=== PATIENT | male | born 1950 | race Caucasian/White ===

== ENCOUNTER 2016-08-18 21:04 | Emergency (ER) | payer OTHER ==
[~2016-08-18] VITALS: Ht 172.7 cm; Wt 115.8 kg
[~2016-08-18 21:04] MED LIST: ACYC5OIN3 EXT; AMLO-110 PO; AMOX500C3 PO; ASPEC325 PO; ATEN-173 PO; DICL75TA2 PO; FLNIN NAE; MULT-506 PO; PANT40TA PO; VALA1TAB PO
[2016-08-18 21:16] VITALS: TEMP 36.8; Ht 172.7 cm; Wt 115.8 kg
[2016-08-18] MEDS ORDERED: PROPARACAINE HCL 0.5% OP SOLN 15 ML BTL ONE (21:34)
[2016-08-18] MEDS ORDERED: ACYC5CRE4 TOP (21:55)
[2016-08-18] MEDS ORDERED: VALA1TAB2 PO (21:55)
[2016-08-18] MEDS ORDERED: ASPI81TA28 PO (21:55)
[2016-08-18] MEDS ORDERED: FLUT0.15 NAE (21:55)
[2016-08-18] MEDS ORDERED: CIPROFLOXACIN HCL 0.3% OP SOLN 2.5 ML BTL OP ONE ×2 (22:00)
[2016-08-18 22:10] VITALS: BP 163/87; PULSE 77; O2SAT 96
--- NOTE | 2016-08-19 02:04 | EMERGENCY ROOM VISIT NOTE ---
ED Visit Note First contact with patient: 21:26 Chief Complaint: Pinkeye. History of Present Illness: Mr. Haddad is a 66-year-old white male who ambulates into the ED accompanied by his complaining of conjunctivitis. Patient reports she was seen by his PCP on Sunday, 2 days ago, and was diagnosed with right eye conjunctivitis. He was prescribed antibiotic drops and seasonal allergy drops for his symptoms. He reports since using them for the last 2 days he has not had any relief of his symptoms and now he is starting to see redness and some mild drainage from the left eye. He reports he is expressing concerns because in 2 days he is leaving for a 10 day cruise of the [place] and once to feel better for this trip. Associated with eye redness and eye drainage patient reports he has a mild burning sensation to both eyes. He rates this discomfort 2/10. His pain is nonradiating. He has not identified any aggravating or alleviating factors related to the pain. He has not taken any medications for pain prior to arrival at the hospital except for his eyedrops. Associated with his pain is the drainage from the eyes but he has noted some mild light sensitivity. He denies fevers, chills, sweats, skin eruptions, skin color changes, visual changes, recent eye trauma, upper respiratory tract symptoms. Review of Systems: As noted above in history of present illness. 5 body systems were reviewed and found to be negative as noted above. Past Medical History: Hypertension, seasonal allergies, status post LASIK surgery Current Medications: Medications Dose Route/Sig Max Daily Dose Days Date Category Dose Instructions Aspirin Ec (Aspirin) 81 Mg Tab 81 Mg PO HS 08/18/16 Reported Flonase Allergy Relief (Fluticasone Propionate (Nasal)) 50 Mcg/Act Spr 1 Sprays TEVIN PRN 08/18/16 Reported Zovirax (Acyclovir Topical) 5 % Cre 1 Appln TOP 5XD PRN 5 08/18/16 Reported Valtrex (Valacyclovir Hcl) 1 Gm Tab 2,000 Mg PO BID 08/18/16 Reported Amoxil (Amoxicillin) 500 Mg Cap 2,000 Mg PO PRN 05/29/12 Reported 1 HOUR BEFORE DENTAL WORK-KNEE REPLACEMENTS Norvasc (Amlodipine Besylate) 5 Mg Tab 5 Mg PO QAM 05/29/12 Reported Voltaren (Diclofenac Sodium) 75 Mg Tab 50 Mg PO BID 12/21/11 Reported Protonix (Pantoprazole Sodium) 40 Mg Tab 40 Mg PO QAM 12/21/11 Reported Multivitamin (Multivitamins) Tab 1 Tab PO QAM 05/09/10 Reported Tenormin (Atenolol) 25 Mg Tab 25 Mg PO QPM 05/09/10 Reported Allergies to Medications: Sulfa. Social History: Patient is not employed; he feels safe in his home environment; he admits to tobacco and alcohol use. Physical Examination: Vital Signs: Date Time Temp Pulse Resp B/P Pulse Ox O2 Delivery O2 Flow Rate FiO2 08/18/16 22:10 77 18 163/87 96 08/18/16 21:16 36.8 74 20 166/79 95 Room Air GENERAL: 66-year-old male in mild distress due to symptoms, nontoxic-appearing, afebrile and hemodynamically stable. NEUROLOGICAL: Awake, alert and oriented to person, place and time. Answering questions appropriately and following commands. SKIN: Warm, dry and pink. HEENT: Atraumatic and normocephalic. No erythema or tenderness over the frontal or maxillary sinuses. No swelling or erythema around the orbits of the eye. PERRLA. EOMI. Sclera injected bilaterally. Conjunctivae is hyperemic with mild drainage of yellowish material. No foreign bodies noted under the eyelids are embedded in the cornea. Anterior chamber is clear. On slit lamp examination with staining there was no foreign body seen and no corneal uptake of the dye. Visual acuity: 20/50 bilaterally without correction. No local lymphadenopathy. No drainage from naris. ED Course: Patient is assessed as noted above. After lengthy conversation he was agreed that we would switch antibiotic coverage but he still should use his allergy medications. So patient was prescribed Ciloxan ophthalmic solution. Patient was educated about tonight's findings and instructed on his treatment plan; he verbalizes understanding and agreement with this plan. Clinical Impression: Bilateral conjunctivitis. Disposition: Patient discharged home in stable condition accompanied by his ; prior to departure he was reassessed and subjectively reported he was feeling the same. Plan: Patient was prescribed Ciloxan ophthalmic solution 2 drops in both eyes every 4 hours while awake for 5 days. Lengthy education was provided on the decreasing the risks of cross and re- contamination. 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 Patient was encouraged to return to an ED or follow-up with a center medical and lab director for worsening symptoms, fevers, visual changes or any new/concerning symptoms.
== END 2016-08-18 22:10 | disposition home or self-care (01) ==
LOC: C.EDB 21:05 → C.EDD 22:10
DX: H10.9 Unspecified conjunctivitis (principal); I10 Essential (primary) hypertension; Z72.0 Tobacco use; Z98.890 Other specified postprocedural states; Z79.82 Long term (current) use of aspirin; Z79.899 Other long term (current) drug therapy

== ENCOUNTER 2017-07-30 11:58 | Inpatient (IN) | payer OTHER ==
[2017-07-19 08:59] VITALS: BMI 42.0
--- NOTE | 2017-07-19 09:49 | PAT Medication Instructions ---
Service Date Jul 19, 2017. Current Home Medication List Acyclovir Topical (Zovirax), 1 APPLN TOP UD PRN for COLD SORES Amlodipine (Norvasc), 5 MG PO QAM Amoxicillin (Amoxil), 2,000 MG PO UD Aspirin (Aspirin Ec), 81 MG PO HS Atenolol (Tenormin), 25 MG PO QPM Ciprofloxacin Tab (Cipro), 500 MG PO BID Diclofenac Sodium (Voltaren), 50 MG PO BID Fluticasone Propionate (Nasal) (Flonase Allergy Relief), 1 SPRAYS TEVIN QAM PRN for allergies Multivitamin (Multivitamin), 1 TAB PO QAM Qwlclclu-Gcdnjmxuu-Wj (Otic) (Marco/Polymyxin/Hc [id number]), 4 DROPS INSTIL UD Pantoprazole Sodium (Protonix), 40 MG PO QAM Simvastatin (Zocor), 20 MG PO HS Valacyclovir Hcl (Valtrex), 2,000 MG PO UD PRN for cold sores Medication Instructions For Your Scheduled Surgery -Continue as directed: Amoxicillin (Amoxil), 2,000 MG PO UD Ciprofloxacin Tab (Cipro), 500 MG PO BID Ziejhkml-Pnznnirud-Ph (Otic) (Marco/Polymyxin/Hc [id number]), 4 DROPS INSTIL UD - Hold the following medications 7 days prior to surgery per your surgeon's instructions: Diclofenac Sodium (Voltaren), 50 MG PO BID - Hold the following medications 24 hours prior to surgery: Acyclovir Topical (Zovirax), 1 APPLN TOP UD PRN for COLD SORES Valacyclovir Hcl (Valtrex), 2,000 MG PO UD PRN for cold sores - Hold the following medications the morning of surgery: Multivitamin (Multivitamin), 1 TAB PO QAM - Take the following medications the morning of surgery with a sip of water: Amlodipine (Norvasc), 5 MG PO QAM Pantoprazole Sodium (Protonix), 40 MG PO QAM Fluticasone Propionate (Nasal) (Flonase Allergy Relief), 1 SPRAYS TEVIN QAM PRN for allergies (if needed) - Take the following medications as scheduled the night before surgery: Aspirin (Aspirin Ec), 81 MG PO HS Atenolol (Tenormin), 25 MG PO QPM Simvastatin (Zocor), 20 MG PO HS Fluticasone Propionate (Nasal) (Flonase Allergy Relief), 1 SPRAYS TEVIN QAM PRN for allergies (if needed) If you have any questions please call us at [phone] or [phone] or [phone]
[2017-07-19 10:20] LABS: BASO % 0.5 %; BASO ABS # 0.03 K/uL (0-0.2); EOS % 3.1 %; HEMATOCRIT 40.5 % (42-52); HEMOGLOBIN 13.8 g/dL (14.0-18.0); IG# 0.01 K/uL (0.00-0.02); LYMPH % 34.7 %; LYMPH ABS # 2.25 K/uL (1.2-3.4); MEAN CELL VOLUME 91.4 fL (80-100); MEAN CORPUSCULAR HEMOGLOBIN 31.2 pg (25-34); MEAN CORPUSCULAR HGB CONC 34.1 g/dl (32-36); MEAN PLATELET VOLUME 10.3 fL (7.4-10.4); MONO % 10.9 %; MONO ABS # 0.71 K/uL (0.11-0.59); NEUT % 50.6 %; NEUT ABS # 3.29 K/uL (1.4-6.5); PLATELET COUNT 188 K/uL (130-400); RED CELL DISTRIBUTION WIDTH CV 13.2 % (11.5-14.5); RED CELL DISTRIBUTION WIDTH SD 43.8 fL (36.4-46.3); WHITE BLOOD COUNT 6.49 K/uL (4.8-10.8)
[2017-07-19 11:43] LABS: PTT PATIENT 25.4 SECONDS (21.0-31.0)
--- NOTE | 2017-07-29 16:02 | HISTORY & PHYSICAL EXAMINATION ---
DATE OF ADMISSION: 07/30/2017 PREOPERATIVE HISTORY AND PHYSICAL REASON FOR ADMISSION: Being preoped for a posterior lumbar interbody fusion, L4-L5 lumbar spine. SURGEON: Dr. Temo Vilchis. CHIEF COMPLAINT: Back pain, lower extremity difficulties, paresthesias, numbness and tingling, signs of spinal instability with increasing pain with ambulation and standing, lessened by becoming supine. HISTORY OF PRESENT ILLNESS: Sim is delightful. He is 67. He has a significant instability and stenosis of the spine at L4-L5. PAST MEDICAL HISTORY: Hypertension, high cholesterol, obesity, sleep apnea, osteoarthritis, acid reflux, prostate carcinoma, anesthesia complications, awareness after surgery. ALLERGIES: SULFA. MEDICATIONS: Include diclofenac, Flonase, Valtrex, atenolol, and Centrum. PAST SURGICAL HISTORY: Bilateral shoulder facetectomy, Lasik eye surgery, bilateral knee surgery, brachytherapy for prostate carcinoma and lumbar spine surgery. REVIEW OF SYSTEMS: Denies any blurred vision, double vision, tinnitus or vertigo. He denies any current neck issues. Denies chest pain, palpitations. Denies asthma, wheezing, shortness of breath. No nausea, vomiting, urgency, frequency, dysuria. Major complaint is back musculoskeletal lower extremities, paresthesias. PHYSICAL EXAMINATION: GENERAL: He is 5 feet 7 inches, 260. VITAL SIGNS: Blood pressure 140/80, pulse 80, respiration rate 16, temperature 97.4. HEENT: Pupils react to light and accommodation. Ear, nose and throat clear. CARDIAC: Normal S1, S2, no S3. LUNGS: Clear to auscultation. No rales, rhonchi, wheezing. ABDOMEN: Soft, nontender, bowel sounds present. EXTREMITIES: Intact x4. He has pain with flexion and extension of the spine. Weakness of dorsiflexion, weakness of quadriceps function. Pain with percussion. IMPRESSION: Severe spinal stenosis, lumbar spine; instability, lumbar spine at L4-L5. DISPOSITION: Includes a PLIF procedure, posterior lumbar interbody fusion, L4-L5 of lumbar spine.
[~2017-07-30] VITALS: Ht 170.2 cm; Wt 122.3 kg
[2017-07-30] VITALS (8 sets, daily range): BP systolic 136–151; BP diastolic 67–90; PULSE 72–102; TEMP 36.3–36.9; O2SAT 94–99; Ht 170.2 cm; Wt 122.3 kg
[~2017-07-30 11:58] MED LIST changes: +ACETAMINOPHEN IV 1000MG/100ML IV SCH; +ACYC5CRE4 TOP; -ACYC5OIN3 EXT; -ASPEC325 PO; +ASPI81TA28 PO; +CEFAZOLIN 3000MG IV PUSH 22.5 ML IV SCH; +CIPR1TAB11 PO; +CeleBREX 200 MG CAP PO SCH; +FENTANYL CITRATE INJ 50 MCG/1 ML 2 ML VIAL ONE; -FLNIN NAE; +FLUT0.15 NAE; +GABAPENTIN 300 MG CAP PO SCH; +LACTATED RINGER'S 1000ML 1,000 ML IV SCH; +MIDAZOLAM HCL 1 MG/ML 2ML VIAL ONE; +NSS 1000ML IV SCH; +SIMV20TA2 PO; -VALA1TAB PO; +VALA1TAB2 PO; +[UNRECOGNIZED DRUG - CODE] INSTIL
[2017-07-30] MEDS ORDERED: ACET1TAB84 PO (12:24)
[2017-07-30] MEDS ORDERED: VANCOMYCIN HCL 1000MG/20ML VIAL ONE (13:53)
[2017-07-30] MEDS ORDERED: GELATIN SPONGE SZ 100 ONE (13:53)
[2017-07-30] MEDS ORDERED: BACITRACIN 50000 UNIT VIAL ONE (13:53)
[2017-07-30] MEDS ORDERED: THROMBIN FOR SOLN 20000 UNIT KIT ONE (13:53)
[2017-07-30] MEDS ORDERED: BUPIVACAINE/EPINEPHRINE 0.5% MPF 1:200,000 30 ML VIAL ONE (13:54)
--- NOTE | 2017-07-30 14:02 | History & Physical Bridge Note ---
H&P Re-Evaluation Bridge Note: I have examined the patient, reviewed the History & Physical and in the interval since the performance of the History & Physical I have noted the following changes of clinical significance: No changes noted
[2017-07-30] MEDS ORDERED: FENTANYL CITRATE INJ 50 MCG/1 ML 2 ML VIAL ONE ×2 (14:33→15:54)
[2017-07-30] MEDS ORDERED: GLYCOPYRROLATE INJ 0.2 MG/ML VIAL ONE (14:47)
[2017-07-30] MEDS ORDERED: EpHEDrine SULFATE 50MG/5ML SYR ONE (14:47)
[2017-07-30] MEDS ORDERED: NEOSTIGMINE METHYLSULFATE 1 MG/ML 10ML VIAL ONE (14:47)
[2017-07-30] MEDS ORDERED: ROCURONIUM BROMIDE 10 MG/ML 5 ML VIAL IV ONE (14:47)
[2017-07-30] MEDS ORDERED: ONDANSETRON INJ 2 MG/ML 2 ML VIAL ONE (14:47)
[2017-07-30] MEDS ORDERED: LIDOCAINE HCL 2% 2 ML VIAL (20MG/ML) ONE (14:47)
[2017-07-30] MEDS ORDERED: PROPOFOL IV EMULSION 10 MG/ML 20 ML VIAL IV ONE (14:47)
[2017-07-30] MEDS ORDERED: DEXAMETHASONE SOD INJ 4 MG/ML VIAL ONE (14:47)
--- NOTE | 2017-07-30 16:29 | DIAGNOSTIC IMAGING REPORT ---
INTRAOPERATIVE RADIOGRAPH CLINICAL HISTORY: L4-L5 spinal fusion. Fluoroscopy time: 10 seconds. FINDINGS: A single spot fluoroscopic view of the lumbar spine is presented. There is been discectomy at L4-L5 with laminectomy and posterior fusion at this level. Interpedicular screws are present at both levels. Orthopedic hardware appears intact. IMPRESSION: Intraoperative image from L4 -L5 spinal fusion as above. Electronically signed by: Cristi Messer M.D. 07/30/2017 4:28 PM Dictated Date/Time: 07/30/2017 4:27 PM
[2017-07-30] MEDS ORDERED: HYDROmorphone INJ 2 MG/ML SYR/VIAL ONE (16:30)
[2017-07-30] MEDS ORDERED: VANCOMYCIN HCL 1000MG/20ML VIAL TOP ONE (16:34)
[2017-07-30] MEDS ORDERED: THROMBIN FOR SOLN 20000 UNIT KIT TOP ONE (16:38)
[2017-07-30] MEDS ORDERED: SODIUM CHLORIDE 0.9% 1000ML 1,000 ML IV SCH ×2 (16:47)
--- NOTE | 2017-07-30 16:48 | [facility] Post Operative Brief Note ---
Immediate Operative Summary Operative Date Jul 30, 2017. Pre-Operative Diagnosis Severe spinal stenosis, lumbar spine; instability, lumbar spine at L4-L5 Post-Operative Diagnosis Severe spinal stenosis, lumbar spine; instability, lumbar spine at L4-L5 Procedure(s) Performed L4-L5 Posterior Lumbar Interbody Fusion Surgeon Dr. Vilchis Crester Surgeon(s) Ed Llanes PA-C Estimated Blood Loss 300cc Findings Consistent with Post-Op Diagnosis Specimens None Anesthesia Type General
[2017-07-30] MEDS ORDERED: HYDROmorphone HCL 0.5MG/ML 50 ML CASSETTE ONE (16:57)
[2017-07-30] MEDS ORDERED: ONDANSETRON INJ 2 MG/ML 2 ML VIAL IV PRN (17:00)
[2017-07-30] MEDS ORDERED: MAGNESIUM HYDROXIDE SUSP 30 ML UDC PO PRN (17:00)
[2017-07-30] MEDS ORDERED: LORAZEPAM 1 MG TAB PO PRN (17:00)
[2017-07-30] MEDS ORDERED: PROMETHAZINE HCL INJ 12.5 MG in SODIUM CHLORIDE 0.9% 50ML 50 ML IV PRN (17:00)
[2017-07-30] MEDS ORDERED: ACETAMINOPHEN 325 MG TAB PO PRN (17:00)
[2017-07-30] MEDS ORDERED: LORAZEPAM INJ 1 MG in SYRINGE 0 ML IV PRN (17:00)
[2017-07-30] MEDS ORDERED: METOCLOPRAMIDE HCL INJ 5 MG/ML 2 ML VIAL IV PRN (17:00)
[2017-07-30] MEDS ORDERED: NALOXONE HCL 0.4 MG/1 ML VIAL/CARP IV PRN (17:00)
[2017-07-30 17:15] LABS: HEMATOCRIT 40.5 % (42-52); HEMOGLOBIN 14.2 g/dL (14.0-18.0)
[2017-07-30] MEDS ORDERED: NURSING VERBAL MED ORDER ONE (17:30)
--- NOTE | 2017-07-30 17:33 | Anesthesiology Progress Note ---
Anesthesia Post Op Note Date & Time Jul 30, 2017 at 17:33 Vital Signs Pain Intensity: 2 Vital Signs Past 12 Hours Date Time Temp Pulse Resp B/P (MAP) Pulse Ox O2 Delivery O2 Flow Rate FiO2 07/30/17 17:25 36.7 88 16 150/70 99 Nasal Cannula 4 07/30/17 17:15 82 16 151/66 99 Nasal Cannula 4 07/30/17 17:05 86 17 134/66 99 Oxymask 8 07/30/17 16:55 71 16 134/69 99 Oxymask 8 07/30/17 16:46 36.2 79 16 145/60 99 Oxymask 8 07/30/17 12:28 36.6 72 20 144/76 99 Room Air Notes Mental Status: alert / awake / arousable, participated in evaluation Pt Amnestic to Procedure: Yes Nausea / Vomiting: adequately controlled Pain: adequately controlled Airway Patency, RR, SpO2: stable & adequate BP & HR: stable & adequate Hydration State: stable & adequate Anesthetic Complications: no major complications apparent
[2017-07-30] MEDS: HYDROmorphone HCL 0.5MG/ML 50 ML CASSETTE IV PRN ×2 (17:47→22:50)
--- NOTE | 2017-07-30 19:19 | OPERATIVE REPORT ---
DATE OF OPERATION: 07/30/2017 PREOPERATIVE DIAGNOSIS: Spondylolisthesis, stenosis L4-L5 lumbar. POSTOPERATIVE DIAGNOSIS: Same. PROCEDURES: 1. Posterior lumbar decompression laminectomy L4 and L5, partial facetectomy. 2. Complete discectomy L4-L5. 3. Post pedicle screw instrumentation L4-L5 and posterior lumbar interbody fusion bilateral L4-L5. SURGEON: Temo Vilchis DO LONG TERM: Macario Llanes PA-C COMPLICATIONS: Zero. BLOOD LOSS: 300 mL. IMPLANTS USED: By the Modality. DESCRIPTION OF PROCEDURE: The patient was taken to the operating room and general intubated anesthetic provided to patient, placed prone, prepped and draped sterile. We made a skin incision, fascial incision. We came down the L4-L5 interspace, putting a deep self-retaining retractor. We decompressed the neural elements at L4 and L5, getting freedom off the L5 nerve root and L4 nerve root bilaterally. I was pleased with the decompression. We then safely instrumented the spine and safely got pedicle screws on the left hand side and left hand side at L4 and L5, stabilizing the spondylolisthesis. We retracted the dura left and right. We were able to do a posterior lumbar interbody fusion. We did a complete discectomy of all visible and conceivable disc material. The cages were used, packed with autograft preceded by autograft as well into the intervertebral area. These were also by the Modality. They measured 11 mm from anterior-posterior. We locked down the construct under compression. We irrigated, closed over Hemovac drain and vancomycin powder. We bone grafted out of the transverse processes. We closed with 1-0 Vicryl, 2-0 and 3-0 nylon in the skin. Sterile dressings applied. The patient returned to PACU stable. There were no apparent complications. I attest to the content of the Intraoperative Record and any orders documented therein. Any exception s are noted below.
[2017-07-30] MEDS: CEFAZOLIN IV 2,000 MG in SYRINGE 0 ML IV SCH (20:28)
[2017-07-30] MEDS: DEXAMETHASONE INJ 10 MG in SYRINGE 0 ML IV SCH (22:25)
[2017-07-31] VITALS (8 sets, daily range): BP systolic 115–148; BP diastolic 59–81; PULSE 80–149; TEMP 36.5–37.2; O2SAT 89–96
[2017-07-31] MEDS: CEFAZOLIN IV 2,000 MG in SYRINGE 0 ML IV SCH ×2 (03:06→11:37)
[2017-07-31] MEDS: DEXAMETHASONE INJ 10 MG in SYRINGE 0 ML IV SCH ×3 (05:56→21:08)
[2017-07-31] MEDS ORDERED: BISACODYL 10 MG SUPP PR PRN (06:00)
[2017-07-31] MEDS ORDERED: HYDROmorphone INJ 2 MG/ML SYR/VIAL IV PRN (06:00)
[2017-07-31] MEDS ORDERED: TRAMADOL HCL 50 MG TAB PO PRN (06:00)
[2017-07-31] MEDS ORDERED: HYDROmorphone INJ 1 MG/ML SYR IV PRN (06:00)
[2017-07-31] MEDS ORDERED: OXYCODONE/ACETAMINOPHEN 5-325 TAB PO PRN (06:00)
[2017-07-31] MEDS ORDERED: DC PCA ONE (06:00)
[2017-07-31] MEDS ORDERED: NURSING VERBAL MED ORDER ONE (06:15)
[2017-07-31 06:38] LABS: HEMATOCRIT 36.8 % (42-52); HEMOGLOBIN 12.7 g/dL (14.0-18.0); MEAN CORPUSCULAR HEMOGLOBIN 31.1 pg (25-34); MEAN CORPUSCULAR HGB CONC 34.5 g/dl (32-36); MEAN PLATELET VOLUME 10.4 fL (7.4-10.4); PLATELET COUNT 195 K/uL (130-400); RED CELL DISTRIBUTION WIDTH CV 13.2 % (11.5-14.5); RED CELL DISTRIBUTION WIDTH SD 42.8 fL (36.4-46.3); WHITE BLOOD COUNT 12.51 K/uL (4.8-10.8)
[2017-07-31 07:15] LABS: CALCIUM 8.3 mg/dl (8.5-10.1); POTASSIUM 4.2 mmol/L (3.5-5.1)
[2017-07-31 07:18] LABS: CREATININE 1.2 mg/dl (0.60-1.40)
--- NOTE | 2017-07-31 07:51 | Anesthesiology Progress Note ---
Anesthesia Post Op Note Date & Time Jul 31, 2017 at 07:50 Vital Signs Pain Intensity: 2.0 Vital Signs Past 12 Hours Date Time Temp Pulse Resp B/P (MAP) Pulse Ox O2 Delivery O2 Flow Rate FiO2 07/31/17 07:04 90 2.0 07/31/17 07:03 149 120/76 (91) 89 Room Air 07/31/17 06:51 36.9 136 20 127/81 (96) 95 Room Air 07/31/17 03:05 37.0 102 16 130/68 (88) 92 Room Air 07/30/17 23:28 Room Air 07/30/17 23:22 36.9 100 16 136/67 (90) 94 Room Air 07/30/17 21:03 36.6 102 18 145/74 (97) 95 Room Air 07/30/17 20:00 36.3 90 18 151/73 (99) 97 Nasal Cannula 4.0 Notes Mental Status: alert / awake / arousable, participated in evaluation Pt Amnestic to Procedure: Yes Nausea / Vomiting: adequately controlled Pain: adequately controlled Airway Patency, RR, SpO2: stable & adequate BP & HR: stable & adequate, see Notes Hydration State: stable & adequate Anesthetic Complications: no major complications apparent patient went into Afib 90-[address] this morning. RN notified Dr. Vega who ordered an EKG and atenolol. VSS.
--- NOTE | 2017-07-31 08:25 | Medical Consult ---
Consultation Date of Consultation: Jul 31, 2017. Attending Physician: Temo Vilchis DO History of Present Illness 67 year old M seen by hospitalist medicine after reports or atrial fibrillation with RVR on 07/31/17. Patient is an orthopedics patients with severe spinal stenosis at L4-L5 and s/p L4-L5 Posterior Lumbar Interbody Fusion by Dr. Vilchis on 07/30/17. EKG performed at 7:10 AM on 07/31/17 documenting afib with RVR at 139 beats per minute. Patient subsequently received morning dose of atenolol 25 mg as per nurse which is part of patient's home medication (Other pertinent home medications for blood pressure and cardiovascular is amlodipine and simvastatin) . Patient denies receiving atenolol yesterday. Patient is asymptomatic when When seen at bedside, patient denies chest pain, shortness of breath, lightheadedness, or palpitations. However, on physical exam, patient with irregular heart beats and tachycardic. Past Medical/Surgical History Medical Problems: (1) Acute conjunctivitis, bilateral Status: Acute Family History FH: COPD (chronic obstructive pulmonary disease) FATHER FH: cancer MOTHER Social History Smoking Status: Former Smoker Allergies Coded Allergies: Celecoxib (Verified Allergy, Intermediate, HIVES, 07/30/17) Lisinopril (Verified Allergy, Unknown, HEADACHE, DIZZINESS, 07/30/17) Sulfa Drugs (Verified Allergy, Unknown, HIVES, 07/30/17) Current Inpatient Medications Current Inpatient Medications Medications (Trade) Dose Ordered Sig/Alessandro Route Start Time Stop Time Status Last Admin Dose Admin Diphenhydramine HCl (Benadryl Cap) 25 mg Q6H PRN PO 07/30/17 17:00 08/29/17 16:59 Magnesium Hydroxide (Milk Of Magnesia Susp) 30 ml DAILY PRN PO 07/30/17 17:00 08/29/17 16:59 Bisacodyl (Dulcolax Supp) 10 mg DAILY PRN SC 07/31/17 06:00 08/30/17 05:59 Bisacodyl (Dulcolax Tab) 5 mg DAILY PRN PO 07/31/17 06:00 08/30/17 05:59 Polyethylene (Miralax Powder Packet) 17 gm DAILY PO 07/31/17 09:00 08/30/17 08:59 Lorazepam 1 mg/ Syringe 0.5 ml @ 1 mls/min Q6H PRN IV 07/30/17 17:00 08/29/17 16:59 Lorazepam (Ativan Tab) 1 mg Q6H PRN PO 07/30/17 17:00 08/29/17 16:59 Metoclopramide HCl (Reglan Inj) 10 mg Q6H PRN IV 07/30/17 17:00 08/29/17 16:59 Ondansetron HCl (Zofran Inj) 4 mg Q6H PRN IV 07/30/17 17:00 08/29/17 16:59 07/31/17 05:51 4 MG Promethazine HCl 12.5 mg/Sodium Chloride 50.5 ml @ 202 mls/hr Q6H PRN IV 07/30/17 17:00 08/29/17 16:59 Hydromorphone HCl (Dilaudid Inj) 1.5 mg Q3H PRN IV 07/31/17 06:00 08/14/17 05:59 Oxycodone/ Acetaminophen (Percocet 5-325mg Tab) 2 tab Q4H PRN PO 07/31/17 06:00 08/14/17 05:59 Hydromorphone HCl (Dilaudid Inj) 1 mg Q3H PRN IV 07/31/17 06:00 08/14/17 05:59 Oxycodone/ Acetaminophen (Percocet 5-325mg Tab) 1 tab Q4H PRN PO 07/31/17 06:00 08/14/17 05:59 Tramadol HCl (Ultram Tab) 50 mg Q4H PRN PO 07/31/17 06:00 08/30/17 05:59 Acetaminophen (Tylenol Tab) 650 mg Q6H PRN PO 07/30/17 17:00 08/29/17 16:59 Cefazolin Sodium 2000 mg/Syringe 15 ml @ 3.75 mls/ min Q8H IV 07/30/17 20:00 07/31/17 12:03 07/31/17 03:06 3.75 MLS/MIN Dexamethasone Sodium Phosphate 10 mg/Syringe 2.5 ml @ 1 mls/min Q8H IV 07/30/17 22:00 08/01/17 06:03 3/6/18 05:56 1 MLS/MIN Atenolol (Tenormin Tab) 25 mg QPM PO 07/31/17 21:00 08/30/17 20:59 Review of Systems Constitutional: No fever Eyes: No worsening of vision, No eye pain ENT: No hearing loss, No nasal symptoms, No sore throat Respiratory: No cough, No sputum, No wheezing, No shortness of breath, No dyspnea at rest Cardiovascular: No chest pain, No edema, No palpitations Abdomen: No pain, No nausea, No vomiting Musculoskeletal: No joint pain Genitourinary - Male: No dysuria Neurologic: No numbness/tingling, No vertigo Integumentary: No rash Physical Exam Date Time Temp Pulse Resp B/P (MAP) Pulse Ox O2 Delivery O2 Flow Rate FiO2 07/31/17 08:18 135 135/77 (96) 91 Nasal Cannula 2.0 07/31/17 08:15 Nasal Cannula 2.0 07/31/17 07:04 90 2.0 07/31/17 07:03 149 120/76 (91) 89 Room Air 07/31/17 06:51 36.9 136 20 127/81 (96) 95 Room Air 07/31/17 03:05 37.0 102 16 130/68 (88) 92 Room Air 07/30/17 23:28 Room Air 07/30/17 23:22 36.9 100 16 136/67 (90) 94 Room Air 07/30/17 21:03 36.6 102 18 145/74 (97) 95 Room Air 07/30/17 20:00 36.3 90 18 151/73 (99) 97 Nasal Cannula 4.0 07/30/17 19:02 36.3 86 18 143/90 (107) 97 Nasal Cannula 4.0 07/30/17 18:12 83 16 144/78 (100) 96 Nasal Cannula 4.0 07/30/17 18:00 99 Nasal Cannula 4.0 07/30/17 18:00 99 Nasal Cannula 4.0 07/30/17 17:45 36.6 84 16 147/70 (95) 96 Nasal Cannula 4.0 07/30/17 17:25 36.7 88 16 150/70 99 Nasal Cannula 4 07/30/17 17:15 82 16 151/66 99 Nasal Cannula 4 3/5/18 17:05 86 17 134/66 99 Oxymask 8 07/30/17 16:55 71 16 134/69 99 Oxymask 8 07/30/17 16:46 36.2 79 16 145/60 99 Oxymask 8 07/30/17 12:28 36.6 72 20 144/76 99 Room Air General Appearance: no apparent distress Eyes: normal inspection, EOMI, sclerae normal ENT: normal ENT inspection, pharynx normal Neck: supple, no adenopathy, no carotid bruits, trachea midline Respiratory/Chest: chest non-tender, lungs clear, normal breath sounds, no respiratory distress, no accessory muscle use Cardiovascular: no edema, no JVD, + tachycardia, + irregularly irregular Abdomen/GI: normal bowel sounds, non tender, soft Back: no muscle spasm, + pertinent finding (patient able to lean forward on exam) Extremities/Musculoskelatal: normal inspection, no calf tenderness, no pedal edema, non-tender 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, alert, normal mood/affect, oriented x 3 Skin: normal color, warm/dry, no rash Laboratory Results Last 24 Hours Test 07/30/17 17:01 07/31/17 05:44 Hemoglobin 14.2 g/dL 12.7 g/dL Hematocrit 40.5 % 36.8 % White Blood Count 12.51 K/uL Red Blood Count 4.09 M/uL Mean Corpuscular Volume 90.0 fL Mean Corpuscular Hemoglobin 31.1 pg Mean Corpuscular Hemoglobin Concent 34.5 g/dl RDW Standard Deviation 42.8 fL RDW Coefficient of Variation 13.2 % Platelet Count 195 K/uL Mean Platelet Volume 10.4 fL Sodium Level 133 mmol/L Potassium Level 4.2 mmol/L Chloride Level 102 mmol/L Carbon Dioxide Level 21 mmol/L Anion Gap 10.0 mmol/L Blood Urea Nitrogen 23 mg/dl Creatinine 1.20 mg/dl Est Creatinine Clear Calc Drug Dose 76.0 ml/min Estimated GFR () 72.6 Estimated GFR (Non- 62.6 BUN/Creatinine Ratio 18.8 Random Glucose 174 mg/dl Calcium Level 8.3 mg/dl Magnesium Level 2.0 mg/dl Thyroid Stimulating Hormone (TSH) 0.466 uIu/ml Assessment & Plan -67 year old M s/p L4-L5 Posterior Lumbar Interbody Fusion by on 07/30/17 and having atrial fibrillation with RVR on 07/31/17 -EKG performed at 7:10 AM on 07/31/17 documenting afib with RVR at 139 beats per minute -has received atenolol 25 mg in AM -atrial fibrillation appears new onset as comparison EKG in August 2016 in normal sinus rhythm -have ordered patient to be transferred to telemetry for further monitoring as patient likely needs further rate control medications -review of patient's exercise echocardiogram in 09/2016 shows no evidence for ischemia -will send troponin and ordered echocardiogram on this admission -have requested cardiology consultation on rate control vs rhythm control strategy or whether this atrial fibrillation is a transient event -of note, patient's post-op labs pertinent for elevated WBC, while leukocytosis may be from dexamethasone use or reactive from surgical procedure and patient received antibiotics with the surgical procedure and patient is afebrile, blood cultures ordered in case afib with RVR triggered by bacterial infection -patient not in pain, continue pain medications as per orthopedics -DVT ppx with SCDs - however will defer to cardiology whether other anticoagulation needed for atrial fibrillation -allergies sulfur and celebrex - gets hives, also reports feeling unwell with lisinopril but no edema reactions
[2017-07-31] MEDS: POLYETHYLENE (MIRALAX) 17 GM PACK PO SCH (08:38)
[2017-07-31] MEDS ORDERED: METOPROLOL TARTRATE 25 MG TAB PO STA (09:21)
[2017-07-31] MEDS ORDERED: METOPROLOL TARTRATE 1 MG/ML VIAL IV STA (09:21)
[2017-07-31] MEDS ORDERED: METOPROLOL TARTRATE 1 MG/ML VIAL ONE (09:34)
[2017-07-31] MEDS ORDERED: HYDR-4383 PO (12:43)
--- NOTE | 2017-07-31 12:45 | Discharge Instructions ---
Discharge Instructions Date of Service Jul 31, 2017. Admission Reason for Admission: Spinal Stenosis Discharge Discharge Diagnosis / Problem: same Discharge Goals Goal(s): Improve function Activity Recommendations Activity Limitations: as noted below Lifting Limitations: no more than 5 pounds just be careful . Instructions / Follow-Up Instructions / Follow-Up MEDICATIONS: Please take your prescriptions as instructed at your pre-op appointment. SPECIAL CARE: The following information is intended to answer some of the common questions and concerns regarding your surgery. Each patient is an individual and receives individual counselling throughout the course of treatment, from diagnosis to surgery all the way through recovery. What follows is not an exhaustive list, but should be a useful guide to some of the common questions and concerns patients have regarding their surgeries. These are not provided to keep you from calling us; rather, they give you something accurate and concrete to reference as you recover from your procedure. If you need us, we are available to you. As always, if you are not sure about something, call us at [phone]. MEDICAL EMERGENCIES: For these conditions, call 911 or go to your local hospital-based Emergency Department - not [facility] or equivalent. * Paralysis * Severe chest pain or difficulty breathing * Swelling or redness of either leg Spine procedures can be rather complex and though complications are rare, they do occur. In such cases, effective advice regarding emergency situations cannot always be addressed over the telephone. You may be referred to the emergency department for more effective management of your problem. Activity Limitations: It is important to give your body time to heal, so please limit your activities : * In general, don't do anything that moves your spine too much. You should avoid contact sports, twisting or heavy lifting while you recover. * 5-10 pounds is all you should attempt to lift. * You should not plan on driving for approximately 3 weeks and you should avoid traveling more than 30-45 minutes at a time. Longer trips should be broken down with walking breaks spaced appropriately. * Physical therapy is not usually required. * Walking and good posture practices will help you recover and regain your function. * Avoid straining or sudden changes in position. * In general, the goal is to take it easy and recover. Don't cause any new problems. Just relax. Showers: * Do not take a bath, use a Jacuzzi or hot tub or otherwise submerge your incision. * It is usually safe to take a shower 4-5 days after your surgery. * Your incision does not require any special creams or ointments. * Simply clean it with soap and water, dry and re-dress with a clean bandage afterwards. Incision: * Keep incision clean, dry and protected until your first follow-up appointment. * Some amount of drainage and redness is normal. Any drainage should be fairly clear and not have a foul odor. * If you feel anything is wrong or you have excessive drainage, please call us. * Your stitches and felisha will be removed 10-14 days after your surgery. At the time of your first post-op visit. * Neck surgeries are typically closed with a suture underneath the skin. The steri-strips over the incision should be maintained until we see you in the office. Bracing: * You may be provided with a back or neck brace to encourage good posture and prevent injury. It will remind you not to do too much as you heal and will alert others to the fact that you have had a surgery. * Back braces may be removed for showers and when you are resting at home. They must be worn when you are walking around for any period of time or for travel. * For neck surgery, you will likely be provided with two cervical collars. The soft collar ([place] or foam rubber) is worn most commonly throughout the day and while sleeping. The plastic collar (provided at the hospital) is for showering/bathing. * Except while eating, collars should remain in place. More specifically, bracing is provided for a purpose and should be worn. * Please obtain your brace or collars prior to your operation and bring them to the hospital with you on the day of surgery. * You should also bring your collars to your post-op appointment with Dr. Vilchis. You should always take good care of your body and practice healthy habits, especially following surgery. You should: * Follow your doctor's treatment plan * Sit and stand properly with good posture (ears over shoulders, shoulders over hips) Don't slouch * Learn to lift correctly * Exercise regularly (low-impact aerobic exercise is especially good, but check with your doctor first) * Generally, be up and walking for 5-10 minutes at a time at least 3-4 times per day from the day you get home * Increasing walking to tolerance until you can walk for 20-30 minutes at a time * Attain and maintain a healthy body weight * Eat healthy foods ( a well-balanced, low-fat diet rich in fruits and vegetables) and get enough calcium * Avoid excessive use of alcohol When to call our office - If you notice any of the following: * Increased pain not relieve by pain medicine * Fevers greater then 100 degrees F, chills or flu symptoms * Increased redness around incision * Drainage from the incision that is not clear * Any foul smelling drainage * Swelling or fluid collection beneath the skin Miscellaneous: * In the hospital, you may be given a walker or cane for support while walking. These are temporary needs and are intended to prevent injuries due to falls. You may discontinue them when you feel strong and steady enough on your feet. * Sleep in a comfortable position. We find that many patients find a lounge chair or recliner with several pillows to be beneficial in the early post-operative period. * The support stockings should be used for 7-10 days and may be discontinued when you are back to walking more and conducting usual household activities. No problem is insignificant. We are here to help you and get you well. Contact us at [phone]. Definitions: Foraminotomy: If part of the disc or a bone spur (osteophyte) is pressing on a nerve as it leaves the vertebra (through an exit called the foramen), a foraminotomy may be done. Otomy means "to make an opening." A foraminotomy is making the opening of the foramen larger, so the nerve can exit without being compressed. Laminotomy: Similar to the foraminotomy, a laminotomy makes a larger opening, this time in your bony plate protecting your spinal canal and spinal cord (the lamina). The lamina may be pressing on your nerve, so the surgeon may make more room for the nerves using a laminotomy. Laminectomy: Sometimes, a laminotomy is not sufficient. The surgeon may need to remove all or part of the lamina. This procedure is called a laminectomy. This can often be done at many levels without any harmful effects. Current Hospital Diet Patient's current hospital diet: Regular Diet Discharge Diet Recommended Diet: Regular Diet Procedures Procedures Performed: L4-L5 Posterior Lumbar Interbody Fusion Pending Studies Studies pending at discharge: no Medical Emergencies . Who to Call and When: Medical Emergencies: If at any time you feel your situation is an emergency, please call 911 immediately. . Non-Emergent Contact Non-Emergency issues call your: Primary Care Provider . "Provider Documentation" section prepared by Temo Vilchis. . VTE Core Measure Inpt VTE Proph given/why not?: Treatment not tolerated
--- NOTE | 2017-07-31 14:44 | ORTHOPEDICS PROGRESS NOTE ---
DATE: 07/31/2017 SUBJECTIVE: Sim is alert, oriented. Denies chest pain, shortness of breath. OBJECTIVE: Vital signs stable. As I was leaving the floor, I was alerted by one of the skilled nurses ____ team indicating to me that his pulse rate had elevated to 140 and it was irregular. We immediately got a hold of the hospitalist with the [facility]. Will get him transferred to observation. He is now about 18 hours post-reconstructive spinal surgery and so far so good, we will get him down to the monitored floor, hopefully get him up on his feet and ambulatory. ____
[2017-07-31] MEDS: OXYCODONE/ACETAMINOPHEN 5-325 TAB PO PRN (14:50)
[2017-07-31] MEDS ORDERED: AMIODARONE IV BOLUS / DRIP IV STA (15:05)
[2017-07-31] MEDS ORDERED: AMIODARONE / D5W 100 ML IV ONE (15:15)
--- NOTE | 2017-07-31 15:18 | Cardiology Consultation ---
Cardiology Consultation Date of Service Jul 31, 2017. Cardiology Consultation Indication: Consultation for her atrial fibrillation with RVR History: This is a 67-year-old male patient who underwent a lumbar laminectomy yesterday. Early this morning he developed atrial fibrillation with RVR and was transferred to the telemetry unit. He was restarted on his atenolol and actually received additional IV beta basil but remains in atrial fibrillation with RVR. He is currently hemodynamically stable and denies symptoms. He has no prior history of heart disease. He denies cardiac arrhythmias, congestive heart failure or ischemic heart disease. Patient has not experienced heart palpitations, tachycardia, dizziness or lightheadedness prior to surgery. He is treated for hypertension and has a history of sleep apnea which is not treated. He has no history of diabetes, kidney disease or strokes. Allergies: Celecoxib, lisinopril, sulfa drugs Reported Home Medications Medications Dose Route/Sig Max Daily Dose Days Date Category Dose Instructions [place] 10/325 Tab (Acetaminophen/Hydrocodone Bitart) 1 Tab Tab 1-2 Tabs PO Q6H PRN 07/31/17 Rx As needed for pain Tylenol Arthritis Ext Rel (Acetaminophen) 650 Mg Cplt 1,300 Mg PO Q8H PRN 07/30/17 Reported Zocor (Simvastatin) 20 Mg Tab 20 Mg PO HS 07/19/17 Reported Aspirin Ec (Aspirin) 81 Mg Tab 81 Mg PO HS 08/18/16 Reported Flonase Allergy Relief (Fluticasone Propionate (Nasal)) 50 Mcg/Act Spr 1 Sprays TEVIN QAM PRN 08/18/16 Reported Zovirax (Acyclovir Topical) 5 % Cre 1 Appln TOP UD PRN 5 08/18/16 Reported Valtrex (Valacyclovir Hcl) 1 Gm Tab 2,000 Mg PO UD PRN 08/18/16 Reported Amoxil (Amoxicillin) 500 Mg Cap 2,000 Mg PO UD 05/29/12 Reported PER PT MED LIST - TAKES 1 HOUR BEFORE DENTAL WORK, MEDICAL PROCEDURE Norvasc (Amlodipine Besylate) 5 Mg Tab 5 Mg PO QAM 05/29/12 Reported Voltaren (Diclofenac Sodium) 75 Mg Tab 50 Mg PO BID 12/21/11 Reported Protonix (Pantoprazole Sodium) 40 Mg Tab 40 Mg PO QAM 12/21/11 Reported Multivitamin (Multivitamins) Tab 1 Tab PO QAM 05/09/10 Reported Tenormin (Atenolol) 25 Mg Tab 25 Mg PO QPM 05/09/10 Reported Past medical history: As outlined above the patient has a history of hypertension. He states that he has a history of sleep apnea but treatment was not indicated. He is treated for dyslipidemia. Social history: The patient is a nonsmoker. He lives with his . Family medical history: Noncontributory General: The patient denies weight change, night sweats, fever, chills. Head: The patient denies headache and prior head trauma. Cardiovascular: The patient denies chest pain or chest discomfort, dyspnea on exertion, palpitations, PND, orthopnea, edema, spontaneous shortness of breath, syncope and near syncope. Pulmonary: The patient denies cough, wheeze, pleurisy, hemoptysis, sputum, and excessive snoring. Gastrointestinal: The patient denies nausea, vomiting, diarrhea, constipation, bloating, hematemesis, hematochezia, and abdominal pain. Skin: The patient denies diaphoresis and rash. Musculoskeletal: The patient had a lumbar laminectomy yesterday Neurological: The patient denies prior stroke and seizures Vital Signs Past 12 Hours Date Time Temp Pulse Resp B/P (MAP) Pulse Ox O2 Delivery O2 Flow Rate FiO2 07/31/17 12:18 36.5 89 18 148/79 (102) 96 07/31/17 09:36 123 07/31/17 08:31 135 91 2.0 07/31/17 08:18 135 135/77 (96) 91 Nasal Cannula 2.0 07/31/17 08:15 Nasal Cannula 2.0 07/31/17 07:04 90 2.0 07/31/17 07:03 149 120/76 (91) 89 Room Air 07/31/17 06:51 36.9 136 20 127/81 (96) 95 Room Air General Appearance: Alert and Oriented x3. NAD. Head: Normocephalic Atraumatic. Eyes: PERRLA, EOMI, conjunctiva and sclera clear Neck: Supple. No carotid bruits noted. No JVD. No HJD. Respiratory: Breath sounds clear to auscultation bilaterally. No w/r/r. Cardiovascular: Reg rate and rhythm. S1 and S2 noted. No murmurs, rubs, gallops. PMI non displace. Abdomen: Normal bowel sounds, soft nontender. no abdominal bruits. Extremities: No edema, no clubbing or cyanosis. distal pulses 2/4 bilaterally. Neuro: No focal deficits. Psychiatric: Normal affect. Last 24 Hours Test 07/30/17 17:01 07/31/17 05:44 07/31/17 08:41 Hemoglobin 14.2 g/dL 12.7 g/dL Hematocrit 40.5 % 36.8 % White Blood Count 12.51 K/uL Red Blood Count 4.09 M/uL Mean Corpuscular Volume 90.0 fL Mean Corpuscular Hemoglobin 31.1 pg Mean Corpuscular Hemoglobin Concent 34.5 g/dl RDW Standard Deviation 42.8 fL RDW Coefficient of Variation 13.2 % Platelet Count 195 K/uL Mean Platelet Volume 10.4 fL Sodium Level 133 mmol/L Potassium Level 4.2 mmol/L Chloride Level 102 mmol/L Carbon Dioxide Level 21 mmol/L Anion Gap 10.0 mmol/L Blood Urea Nitrogen 23 mg/dl Creatinine 1.20 mg/dl Est Creatinine Clear Calc Drug Dose 76.0 ml/min Estimated GFR () 72.6 Estimated GFR (Non- 62.6 BUN/Creatinine Ratio 18.8 Random Glucose 174 mg/dl Calcium Level 8.3 mg/dl Magnesium Level 2.0 mg/dl Thyroid Stimulating Hormone (TSH) 0.466 uIu/ml Troponin I < 0.015 ng/ml Impression: 1. Atrial fibrillation with RVR 2. Status post lumbar laminectomy 3. History of hypertension 4. History of sleep apnea Recommendations: The patient is in persistent atrial fibrillation with RVR despite being given beta blockers. I think it's important that we try to get him back into normal sinus rhythm as early as possible and therefore going to start him on intravenous diuretic with the hope that he will spontaneously convert. He is currently not anticoagulated due to his surgery but I think it' s early enough on in the onset of atrial fibrillation can safely allow him to convert. If he remains in persistent atrial fibrillation then we will have to anticoagulate him. I would continue his other medications including the atenolol and his home amlodipine. I will review the echocardiogram that was completed this morning. Once the amiodarone has been started and is on a continuous drip, if he remains stable then he can eat. Thank you Dr. Gaffney
[2017-07-31] MEDS ORDERED: AMIODARONE / D5W 200 ML IV SCH ×2 (15:24→21:24)
--- NOTE | 2017-07-31 17:05 | ECHOCARDIOGRAM REPORT ---
*NOTICE TO RECEIVING CONSTITUTION PARTY AGENCY This information is strictly Confidential and protected under [place] law. [place] law prohibits you from making any further disclosure of this information unless further disclosure is expressly permitted by the written consent of the person to whom it pertains or is authorized by law. A general authorization for the release of medical or other information is not sufficient for this purpose. Hospital accepts no responsibility if the information is made available to any other person, INCLUDING THE PATIENT. Interpretation Summary * Name: ALICIA BLANK Study Date: 07/31/2017 01:21 PM BP: 148/79 mmHg * Patient Location: C.2T\S\S230\S\2 HR: 118 * : 1950 (M/d/yyyy) Gender: Male Height: 67 in * Age: 67 yrs Ethnicity: [place] Weight: 270 lb * Ordering Physician: Fili Mendes * Referring Physician: Temo Vilchis * Performed By: Giulia Hwang RCS * * Reason For Study: A-FIB WITH RVR * BSA: 2.3 m2 * -- Conclusions -- * The patient is in atrial fibrillation during the study. * Left ventricular systolic function is normal. * Ejection Fraction = 55-60%. * The right ventricular systolic function is normal. * The left atrial size is normal. * Right atrial size is normal. * No significant valvular pathology. Procedure Details * A complete two-dimensional transthoracic echocardiogram was performed (2D, M-mode, Doppler and color flow Doppler). Left Ventricle * The left ventricle is normal in size. * There is normal left ventricular wall thickness. * Left ventricular systolic function is normal. * Ejection Fraction = 55-60%. * The left ventricular wall motion is normal. Right Ventricle * The right ventricle is normal size. * The right ventricular systolic function is normal. Atria * The left atrial size is normal. * Right atrial size is normal. * No ASD detected; PFO is not assessed. Mitral Valve * The mitral valve is normal in structure and function. Tricuspid Valve * The tricuspid valve is normal in structure and function. Aortic Valve * The aortic valve is normal in structure and function. Pulmonic Valve * The pulmonic valve is not well visualized. Great Vessels * The aortic root and proximal ascending aorta are normal sized. Pericardium/Pleural * There is no pericardial effusion. MMode 2D Measurements and Calculations IVSd 1.4 cm IVSs 2.0 cm LVIDd 3.7 cm LVIDs 2.9 cm LVPWd 1.4 cm LVPWs 1.3 cm IVS/LVPW 1.0 FS 21.5 % EDV(Teich) 56.3 ml ESV(Teich) 31.3 ml EF(Teich) 44.5 % EDV(cubed) 48.7 ml ESV(cubed) 23.5 ml EF(cubed) 51.7 % % IVS thick 40.2 % % LVPW thick -10.53 % LV mass(C)d 187.7 grams LV mass(C)dI 81.7 grams/m\S\2 LV mass(C)s 173.4 grams LV mass(C)sI 75.5 grams/m\S\2 SV(Teich) 25.0 ml SI(Teich) 10.9 ml/m\S\2 SV(cubed) 25.2 ml SI(cubed) 11.0 ml/m\S\2 Ao root diam 3.4 cm Ao root area 9.1 cm\S\2 LA dimension 3.5 cm LA/Ao 1.0 LVOT diam 1.8 cm LVOT area 2.7 cm\S\2 LVAd ap4 32.3 cm\S\2 LVLd ap4 8.6 cm EDV(MOD-sp4) 100.3 ml EDV(sp4-el) 103.2 ml LVAs ap4 21.0 cm\S\2 LVLs ap4 7.1 cm ESV(MOD-sp4) 53.1 ml ESV(sp4-el) 53.0 ml EF(MOD-sp4) 47.1 % EF(sp4-el) 48.6 % LVAd ap2 32.4 cm\S\2 LVLd ap2 8.9 cm EDV(MOD-sp2) 96.3 ml EDV(sp2-el) 100.4 ml LVAs ap2 19.5 cm\S\2 LVLs ap2 6.5 cm ESV(MOD-sp2) 47.2 ml ESV(sp2-el) 49.4 ml EF(MOD-sp2) 51.0 % EF(sp2-el) 50.8 % LVLd %diff 3.6 % EDV(MOD-bp) 98.5 ml LVLs %diff -8.95 % ESV(MOD-bp) 50.3 ml EF(MOD-bp) 48.9 % SV(MOD-sp4) 47.2 ml SI(MOD-sp4) 20.5 ml/m\S\2 SV(MOD-sp2) 49.1 ml SI(MOD-sp2) 21.4 ml/m\S\2 SV(MOD-bp) 48.2 ml SI(MOD-bp) 21.0 ml/m\S\2 SV(sp4-el) 50.2 ml SI(sp4-el) 21.8 ml/m\S\2 SV(sp2-el) 51.0 ml SI(sp2-el) 22.2 ml/m\S\2 Doppler Measurements and Calculations MV E max aj 111.6 cm/sec MV P1/2t max aj 121.7 cm/sec MV P1/2t 63.7 msec MVA(P1/2t) 3.5 cm\S\2 MV dec slope 559.1 cm/sec\S\2 MV dec time 0.19 sec Ao V2 max 134.8 cm/sec Ao max PG 7.3 mmHg Ao max PG (full) 2.4 mmHg [place](V,A) 2.2 cm\S\2 [place](V,D) 2.2 cm\S\2 LV V1 max PG 4.9 mmHg LV V1 max 110.6 cm/sec MR max aj 480.1 cm/sec MR max PG 92.2 mmHg PA V2 max 79.4 cm/sec PA max PG 2.5 mmHg
[2017-08-01] VITALS (7 sets, daily range): BP systolic 108–145; BP diastolic 45–73; PULSE 55–79; TEMP 36.5–37.1; O2SAT 92–96
[2017-08-01] MEDS: DEXAMETHASONE INJ 10 MG in SYRINGE 0 ML IV SCH (05:37)
[2017-08-01 06:09] LABS: HEMATOCRIT 34.1 % (42-52); HEMOGLOBIN 11.7 g/dL (14.0-18.0); MEAN CORPUSCULAR HEMOGLOBIN 30.9 pg (25-34); MEAN CORPUSCULAR HGB CONC 34.3 g/dl (32-36); MEAN PLATELET VOLUME 9.9 fL (7.4-10.4); PLATELET COUNT 183 K/uL (130-400); RED CELL DISTRIBUTION WIDTH CV 13.3 % (11.5-14.5); RED CELL DISTRIBUTION WIDTH SD 43.8 fL (36.4-46.3); WHITE BLOOD COUNT 15.13 K/uL (4.8-10.8)
[2017-08-01 06:45] LABS: CALCIUM 8.4 mg/dl (8.5-10.1); CREATININE 1.2 mg/dl (0.60-1.40); POTASSIUM 4.3 mmol/L (3.5-5.1)
[2017-08-01] MEDS: POLYETHYLENE (MIRALAX) 17 GM PACK PO SCH (07:43)
[2017-08-01] MEDS: BISACODYL 5 MG TABEC PO PRN (07:45)
--- NOTE | 2017-08-01 07:55 | Progress Note ---
Internal Med Progress Note Date of Service: Aug 01, 2017. Provider Documentation: Hospitalist consult follow up note SUBJECTIVE: Denies pain or shortness of breath. On amiodarone drip OBJECTIVE: Exam: General- no distress, verbal Eyes- EOMI Neck-trachea midline, no JVD Lungs- CTABL, no wheezing Heart- Regular rate, sinus in rhythm Abdomen- soft nontender, + bowel sounds Back- wound vac and drain Extremities- no edema Neuro- no focal deficits, awake, alert ASSESSMENT & PLAN: Hospitalist consult follow up note 67 year old M s/p L4-L5 Posterior Lumbar Interbody Fusion by on 07/30/17 and having atrial fibrillation with RVR on 07/31/17. Patient subsequently received beta blockers of home dose atenolol and additional metoprolol and has been started on amiodarone drip by cardiology service. Patient had echocardiogram on 07/31/17 when he was still in atrial fibrillation but the echocardiogram showed that the Left ventricular systolic function is normal with Ejection Fraction = 55-60%. Since around 5 PM on 07/31/17 the patient has been in sinus rhythm. Heart rate also under 100 beats per minute since that time Currently on scheduled home dose atenolol in regards to beta blockers although likely the intent of this home medication was aimed for blood pressure control rather than rate control from primary care doctor While heart rate is controlled at this time and patient is in sinus rhythm, hospitalist medicine service will defer to cardiology service on whether patient will need anticoagulation. The recent surgery does complicate the question on bleeding risks Patient has wound vac/drain to be followed by primary orthopedics team. DVT prophylaxis and pain control medications and bowel regimen as per orthopedics team Vital Signs: Date Time Temp Pulse Resp B/P (MAP) Pulse Ox O2 Delivery O2 Flow Rate FiO2 08/01/17 04:00 Room Air 08/01/17 03:13 37.0 75 20 126/72 (90) 93 Room Air 08/01/17 00:00 Room Air 07/31/17 23:30 36.8 81 20 131/68 (89) 94 Room Air 07/31/17 20:00 Room Air 07/31/17 19:30 37.2 80 20 115/59 (77) 90 Room Air 07/31/17 16:00 Room Air 07/31/17 12:18 36.5 89 18 148/79 (102) 96 07/31/17 09:36 123 07/31/17 08:31 135 91 2.0 07/31/17 08:18 135 135/77 (96) 91 Nasal Cannula 2.0 07/31/17 08:15 Nasal Cannula 2.0 Lab Results: Results Past 24 Hours Test 07/31/17 08:41 08/01/17 05:24 Range/Units Troponin I < 0.015 0-0.045 ng/ml White Blood Count 15.13 4.8-10.8 K/uL Red Blood Count 3.79 4.7-6.1 M/uL Hemoglobin 11.7 14.0-18.0 g/dL Hematocrit 34.1 42-52 % Mean Corpuscular Volume 90.0 80-100 fL Mean Corpuscular Hemoglobin 30.9 25-34 pg Mean Corpuscular Hemoglobin Concent 34.3 32-36 g/dl RDW Standard Deviation 43.8 36.4-46.3 fL RDW Coefficient of Variation 13.3 11.5-14.5 % Platelet Count 183 130-400 K/uL Mean Platelet Volume 9.9 7.4-10.4 fL Sodium Level 137 136-145 mmol/L Potassium Level 4.3 3.5-5.1 mmol/L Chloride Level 106 98-107 mmol/L Carbon Dioxide Level 23 21-32 mmol/L Anion Gap 8.0 3-11 mmol/L Blood Urea Nitrogen 31 7-18 mg/dl Creatinine 1.20 0.60-1.40 mg/dl Est Creatinine Clear Calc Drug Dose 76.0 ml/min Estimated GFR () 72.6 Estimated GFR (Non- 62.6 BUN/Creatinine Ratio 25.6 10-20 Random Glucose 156 70-99 mg/dl Calcium Level 8.4 8.5-10.1 mg/dl Microbiology Results 07/31/17 Blood Culture, Received Pending 07/31/17 Blood Culture, Received Pending
--- NOTE | 2017-08-01 09:52 | Cardiology Follow-Up ---
Subjective Subjective Date of Service: Aug 01, 2017. Pt evaluation today including: conversation w/ patient, physical exam, chart review, lab review, review of studies, review of inpatient medication list Additional Details: The patient converted to normal sinus rhythm soon after starting the amiodarone drip late yesterday afternoon. Patient had uneventful night and has maintained sinus rhythm. He actually has been walking through the halls this morning with physical therapy and has no complaints. Problem List Medical Problems: (1) Acute conjunctivitis, bilateral Status: Acute Objective Vital Signs Last Vital Signs Documentation Date Time Temp Pulse Resp B/P (MAP) Pulse Ox O2 Delivery O2 Flow Rate FiO2 08/01/17 08:06 36.8 70 18 111/51 (71) 94 08/01/17 04:00 Room Air 07/31/17 08:31 2.0 Physical Exam: General Appearance: no apparent distress ENT: normal ENT inspection, hearing grossly normal Respiratory/Chest: lungs clear, no respiratory distress, no accessory muscle use Cardiovascular: regular rate, rhythm, no gallop, no murmur Abdomen: non tender, soft, no organomegaly Extremities: no pedal edema Neurologic/Psychiatric: no motor/sensory deficits, alert, normal mood/affect Skin: warm/dry Lymphatic: no adenopathy Assessment and Plan Impression: 1. Paroxysmal atrial fibrillation 2. Hypertension 3. Sleep apnea 4. Status post laminectomy Recommendations: I will stop the amiodarone this morning. He should remain on a telemetry unit until this afternoon and if he maintains sinus rhythm then he can be transferred to the orthopedic floor. I would continue his atenolol at its current dose. Medications: Current Inpatient Medications Medications (Trade) Dose Ordered Sig/Alessandro Route Start Time Stop Time Status Last Admin Dose Admin Diphenhydramine HCl (Benadryl Cap) 25 mg Q6H PRN PO 07/30/17 17:00 08/29/17 16:59 Magnesium Hydroxide (Milk Of Magnesia Susp) 30 ml DAILY PRN PO 07/30/17 17:00 08/29/17 16:59 Bisacodyl (Dulcolax Supp) 10 mg DAILY PRN PA 07/31/17 06:00 08/30/17 05:59 Bisacodyl (Dulcolax Tab) 5 mg DAILY PRN PO 07/31/17 06:00 08/30/17 05:59 08/01/17 07:45 5 MG Polyethylene (Miralax Powder Packet) 17 gm DAILY PO 07/31/17 09:00 08/30/17 08:59 08/01/17 07:43 17 GM Lorazepam 1 mg/ Syringe 0.5 ml @ 1 mls/min Q6H PRN IV 07/30/17 17:00 08/29/17 16:59 Lorazepam (Ativan Tab) 1 mg Q6H PRN PO 07/30/17 17:00 08/29/17 16:59 Metoclopramide HCl (Reglan Inj) 10 mg Q6H PRN IV 07/30/17 17:00 08/29/17 16:59 Ondansetron HCl (Zofran Inj) 4 mg Q6H PRN IV 07/30/17 17:00 08/29/17 16:59 07/31/17 05:51 4 MG Promethazine HCl 12.5 mg/Sodium Chloride 50.5 ml @ 202 mls/hr Q6H PRN IV 07/30/17 17:00 08/29/17 16:59 Hydromorphone HCl (Dilaudid Inj) 1.5 mg Q3H PRN IV 07/31/17 06:00 08/14/17 05:59 Oxycodone/ Acetaminophen (Percocet 5-325mg Tab) 2 tab Q4H PRN PO 07/31/17 06:00 08/14/17 05:59 07/31/17 14:50 2 TAB Hydromorphone HCl (Dilaudid Inj) 1 mg Q3H PRN IV 07/31/17 06:00 08/14/17 05:59 Oxycodone/ Acetaminophen (Percocet 5-325mg Tab) 1 tab Q4H PRN PO 07/31/17 06:00 08/14/17 05:59 07/31/17 23:28 1 TAB Tramadol HCl (Ultram Tab) 50 mg Q4H PRN PO 07/31/17 06:00 08/30/17 05:59 Acetaminophen (Tylenol Tab) 650 mg Q6H PRN PO 07/30/17 17:00 08/29/17 16:59 Atenolol (Tenormin Tab) 25 mg QPM PO 07/31/17 21:00 08/30/17 20:59 07/31/17 21:07 25 MG Lab Results: Last 24 Hours Test 08/01/17 05:24 White Blood Count 15.13 K/uL Red Blood Count 3.79 M/uL Hemoglobin 11.7 g/dL Hematocrit 34.1 % Mean Corpuscular Volume 90.0 fL Mean Corpuscular Hemoglobin 30.9 pg Mean Corpuscular Hemoglobin Concent 34.3 g/dl RDW Standard Deviation 43.8 fL RDW Coefficient of Variation 13.3 % Platelet Count 183 K/uL Mean Platelet Volume 9.9 fL Sodium Level 137 mmol/L Potassium Level 4.3 mmol/L Chloride Level 106 mmol/L Carbon Dioxide Level 23 mmol/L Anion Gap 8.0 mmol/L Blood Urea Nitrogen 31 mg/dl Creatinine 1.20 mg/dl Est Creatinine Clear Calc Drug Dose 76.0 ml/min Estimated GFR () 72.6 Estimated GFR (Non- 62.6 BUN/Creatinine Ratio 25.6 Random Glucose 156 mg/dl Calcium Level 8.4 mg/dl
[2017-08-01] MEDS: OXYCODONE/ACETAMINOPHEN 5-325 TAB PO PRN (12:56)
[2017-08-02 03:24] VITALS: BP 132/75; PULSE 74; TEMP 36.8; O2SAT 96
[2017-08-02 07:01] LABS: HEMOGLOBIN 12.3 g/dL (14.0-18.0); MEAN CELL VOLUME 89.3 fL (80-100); MEAN CORPUSCULAR HEMOGLOBIN 30.5 pg (25-34); MEAN CORPUSCULAR HGB CONC 34.2 g/dl (32-36); MEAN PLATELET VOLUME 10.3 fL (7.4-10.4); PLATELET COUNT 211 K/uL (130-400); RED CELL DISTRIBUTION WIDTH CV 13.1 % (11.5-14.5); WHITE BLOOD COUNT 13.55 K/uL (4.8-10.8)
[2017-08-02] MEDS: POLYETHYLENE (MIRALAX) 17 GM PACK PO SCH (07:41)
[2017-08-02] MEDS: BISACODYL 5 MG TABEC PO PRN (07:41)
[2017-08-02 07:49] VITALS: BP 132/66; PULSE 70; TEMP 36.8; O2SAT 97
[2017-08-02 10:13] VITALS: BP 132/66; PULSE 70; TEMP 36.8; O2SAT 97
== END 2017-08-02 11:21 | disposition home or self-care (01) | DRG 454 ==
LOC: C.ACU 11:58 → C.3E 14:00 → ENRESERV 17:25 → C.2T 07-31 07:55 → CANBEDREQ 07-31 08:00 → ENRESERV 07-31 08:17
PROVIDERS: ADMIT Orthopaedic Surgery Orthopaedic Surgery of the Spine; ATTEND Orthopaedic Surgery Orthopaedic Surgery of the Spine
DX: M48.061 Spinal stenosis, lumbar region without neurogenic claudication (principal); Z68.41 Body mass index [BMI] 40.0-44.9, adult; M43.16 Spondylolisthesis, lumbar region; M53.2X6 Spinal instabilities, lumbar region; I48.0 Paroxysmal atrial fibrillation; I10 Essential (primary) hypertension; E66.9 Obesity, unspecified; Z79.899 Other long term (current) drug therapy; Z79.1 Long term (current) use of non-steroidal anti-inflammatories (NSAID); Z92.84 Personal history of unintended awareness under general anesthesia; Z87.891 Personal history of nicotine dependence; Z85.46 Personal history of malignant neoplasm of prostate; Z88.2 Allergy status to sulfonamides; Z88.8 Allergy status to other drugs, medicaments and biological substances; Z88.6 Allergy status to analgesic agent; Z82.5 Family history of asthma and other chronic lower respiratory diseases

== ENCOUNTER 2019-03-05 12:07 | Inpatient (IN) ==
[2019-03-05] MEDS ORDERED: ACETAMINOPHEN 500 MG TAB PO STA (12:22)
[2019-03-05] MEDS ORDERED: SODIUM CHLORIDE 0.9% 500 ML IV SCH (12:30)
--- NOTE | 2019-03-05 12:36 | Emergency Department Note ---
Entered by Cedrick Smart acting as a scribe for Fabian Sheriff DO History of Present Illness General Chief complaint: Chest Pain Stated complaint: AFIB - DIZZY Source: patient History of Present Illness Onset (ago): day(s) 1 Location: head Pain Consistency: + constant Maximum Pain Intensity: 5 Quality: + other (headache ) Associated symptoms: + chest pain (left-sided), + nausea/vomiting (+nausea; - vomiting ) and + other (+dizziness; +tiredness; -neck pain; -trauma ); no fever/chills The patient is a 69 year old male, with past medical history of atrial fibrillation, hypertension, hyperlipidemia, and acid reflux, who presents to the Emergency Room with complaints of a constant headache that began yesterday. The patient also states he is in atrial fibrillation as he notes he has had prior history with atrial fibrillation. The patient also notes dizziness, left-sided chest pain, nausea, and tiredness. The patient states the chest pain started the morning. The patient reports that he is experiencing the headache to both temples of his head. The patient denies vomiting, fever, neck pain, or recent trauma. The patient states he took all his daily medications today, but he notes he has not taken anything extra for his headache. The patient states he was hunting 4 days ago that caused him to walk approximately 1.5 miles. The patient also notes he recently switched from glasses to contacts. The patient reports he sees Dr. Gaffney for cardiology. Home Medications Home Medications Medication Instructions Recorded Confirmed Type acyclovir [Zovirax] 1 applic TOPICAL Q2H PRN 03/05/19 03/05/19 History allopurinol 100 mg PO BID 03/05/19 03/05/19 History amlodipine 5 mg PO QAM 03/05/19 03/05/19 History atenolol 50 mg PO HS 03/05/19 03/05/19 History fluticasone propionate [Flonase 2 spray INTRANASAL DAILY 03/05/19 03/05/19 History Allergy Relief] [id number] acid-lutein [Centrum 1 tab PO DAILY 03/05/19 03/05/19 History Silver] pantoprazole 40 mg PO QAM 03/05/19 03/05/19 History rivaroxaban [Xarelto] 20 mg PO PM 03/05/19 03/05/19 History simvastatin 20 mg PO PM 03/05/19 03/05/19 History valacyclovir [Valtrex] 1,000 mg PO BID PRN 03/05/19 03/05/19 History Allergies Allergy/AdvReac Type Severity Reaction Status Date / Time celecoxib Allergy Intermediate HIVES Verified 03/05/19 13:21 lisinopril Allergy Unknown HEADACHE, Verified 03/05/19 13:21 DIZZINESS Sulfa (Sulfonamide Allergy Unknown HIVES Verified 03/05/19 13:21 Antibiotics) Past Med/Surg History Medical History GERD (gastroesophageal reflux disease) (Chronic) Hypertension (Chronic) GORDON (obstructive sleep apnea) (Chronic) Gout (Chronic) Dyslipidemia (Chronic) Paroxysmal atrial fibrillation (Chronic) Prostate cancer (Chronic 10/26/11) "Rising PSA with a family history of prostate cancer Status post ultrasound-guided biopsies 10/26/2011 revealing adenocarcinoma the prostate [place] 3+3 pretreatment PSA 5.03 status post seed implant with cesium 131 as monotherapy 06/11/2012 received 115 Gy " Surgical History History of vasectomy (Chronic) History of total left knee replacement (Chronic) S/P rotator cuff repair (Chronic) S/P tonsillectomy and adenoidectomy (Chronic) S/P lumbar laminectomy (Chronic 07/13/14) S/P lumbar spinal fusion (Chronic) Family History Mother Colorectal cancer Father COPD (chronic obstructive pulmonary disease) Social History Preferred Language: Spanish Communication Ability: Effective 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 and A total of 10 systems reviewed and were otherwise negative Physical Exam Vital Signs Vital Signs - 24 hr 03/05/19 12:09 03/05/19 12:30 03/05/19 12:38 Temperature 36.7 C Temperature Source Oral Sepsis Recent Fever Within 48 Hours No Sepsis New/Unexplained Change in Mental Status No Sepsis Action Taken by Nursing No Action Required Pulse Rate 96 H 112 H Pulse Rate [Apical] Pulse Rate from SpO2 Sensor 101 H Pulse Rhythm [Apical] Respiratory Rate 16 14 Respiratory Effort / Characteristics Non-Labored Respiratory Depth Normal Blood Pressure 155/92 H 144/94 H Blood Pressure [Right Arm] Blood Pressure Mean 113 110 Blood Pressure Mean [Right Arm] Blood Pressure Position Sitting Pulse Oximetry 96 97 97 Oxygen Delivery Method Room Air Room Air Room Air 03/05/19 12:40 03/05/19 13:05 03/05/19 13:34 Temperature Temperature Source Sepsis Recent Fever Within 48 Hours Sepsis New/Unexplained Change in Mental Status Sepsis Action Taken by Nursing Pulse Rate 115 H Pulse Rate [Apical] 105 H Pulse Rate from SpO2 Sensor 105 H Pulse Rhythm [Apical] Irregular Respiratory Rate 11 L 21 Respiratory Effort / Characteristics Respiratory Depth Blood Pressure Blood Pressure [Right Arm] 121/78 Blood Pressure Mean Blood Pressure Mean [Right Arm] 92 Blood Pressure Position Pulse Oximetry 97 94 95 Oxygen Delivery Method Room Air Room Air 03/05/19 14:00 03/05/19 14:30 03/05/19 15:49 Temperature Temperature Source Sepsis Recent Fever Within 48 Hours Sepsis New/Unexplained Change in Mental Status Sepsis Action Taken by Nursing Pulse Rate 96 H 98 H 90 Pulse Rate [Apical] Pulse Rate from SpO2 Sensor 95 H 100 H 89 Pulse Rhythm [Apical] Respiratory Rate 17 15 19 Respiratory Effort / Characteristics Respiratory Depth Blood Pressure 124/85 109/85 101/70 Blood Pressure [Right Arm] Blood Pressure Mean 98 93 80 Blood Pressure Mean [Right Arm] Blood Pressure Position Pulse Oximetry 94 96 97 Oxygen Delivery Method Room Air Room Air Room Air 03/05/19 16:00 03/05/19 16:30 03/05/19 17:01 Temperature Temperature Source Sepsis Recent Fever Within 48 Hours Sepsis New/Unexplained Change in Mental Status Sepsis Action Taken by Nursing Pulse Rate 87 111 H 105 H Pulse Rate [Apical] Pulse Rate from SpO2 Sensor 90 86 90 Pulse Rhythm [Apical] Respiratory Rate 15 13 18 Respiratory Effort / Characteristics Respiratory Depth Blood Pressure 123/88 118/65 142/81 H Blood Pressure [Right Arm] Blood Pressure Mean 99 82 101 Blood Pressure Mean [Right Arm] Blood Pressure Position Pulse Oximetry 95 94 96 Oxygen Delivery Method Room Air Room Air Room Air GENERAL: Patient is awake alert in no acute distress patient is resting comfortably and showing no signs of anxiety EYES: The conjunctivae are clear. The pupils are round and reactive. EARS, NOSE, MOUTH AND THROAT: The nose is without any evidence of any deformity. Mucous membranes are moist tongue is midline NECK: The neck is nontender and supple. RESPIRATORY: Normal respiratory effort is noted there is no evidence of wheezing rhonchi or rales CARDIOVASCULAR: Irregular rhythm with tachycardic rate was noted to auscultation. No definite murmur was noted. GASTROINTESTINAL: The abdomen is soft. Bowel sounds are present in all quadrants. Abdomen is nontender MUSCULOSKELETAL/EXTREMITIES: There is no evidence of gross deformity full range of motion is noted in the hips and shoulders SKIN: There is no obvious evidence of any rash. There are no petechiae, pallor or cyanosis noted. NEUROLOGIC: Patient is awake alert and oriented x3 strength is symmetric patellar reflexes are 2+ bilaterally Course 1218: Past medical records reviewed. The patient was evaluated in room B3B. A complete history and physical exam was performed. 1323: I discussed the patient's case with Dr. Michelet Jenkins-Radiology. 1500: The patient is signed out to Dr. Palencia at end of shift due to pending MRI. Consultations Consultation #1: I discussed the patient's case with Dr. Michelet Jenkins- Radiology. Time: 13:23 Administered Medications Acetaminophen (Tylenol) 650 mg PO Q4H PRN PRN Reason: Pain or Fever Stop: 04/04/19 18:41 Last Admin: 03/06/19 08:11 Dose: 650 mg Documented by: [id number] Admin: 03/06/19 04:05 Dose: 650 mg Documented by: [id number] Admin: 03/05/19 23:54 Dose: 650 mg Documented by: [id number] Admin: 03/05/19 19:23 Dose: 650 mg Documented by: [id number] Allopurinol (Zyloprim) 100 mg PO BID [facility] Stop: 04/04/19 20:59 Last Admin: 03/06/19 08:32 Dose: 100 mg Documented by: [id number] Cosigned by: [id number] Admin: 03/05/19 20:13 Dose: 100 mg Documented by: [id number] Amlodipine Besylate (Norvasc) 5 mg PO QAM [facility] Stop: 04/05/19 08:59 Last Admin: 03/06/19 08:31 Dose: 5 mg Documented by: [id number] Cosigned by: [id number] Sodium Chloride (Nss 1000ml) 1,000 mls @ 100 mls/hr IV .Q10H [facility] Stop: 04/04/19 18:41 Last Admin: 03/06/19 06:06 Dose: 100 mls/hr Documented by: [id number] Infusion: 03/06/19 05:23 Dose: 100 mls/hr Documented by: [id number] Admin: 03/05/19 19:23 Dose: 100 mls/hr Documented by: [id number] Metoprolol Tartrate (Lopressor) 25 mg PO BID [facility] Stop: 04/04/19 18:41 Last Admin: 03/06/19 08:30 Dose: 25 mg Documented by: [id number] Cosigned by: [id number] Admin: 03/05/19 20:21 Dose: Not Given Documented by: [id number] Admin: 03/05/19 20:14 Dose: 25 mg Documented by: [id number] Multivitamins/Minerals (Multivitamin W/ Minerals Tab) 1 tab PO DAILY [facility] Stop: 04/05/19 08:59 Last Admin: 03/06/19 08:31 Dose: 1 tab Documented by: [id number] Cosigned by: [id number] Pantoprazole Sodium (Protonix) 40 mg PO QAM [facility] Stop: 04/05/19 08:59 Last Admin: 03/06/19 08:32 Dose: 40 mg Documented by: [id number] Cosigned by: [id number] Rivaroxaban (Xarelto) 20 mg PO PM [facility] Stop: 04/04/19 20:59 Last Admin: 03/05/19 20:13 Dose: 20 mg Documented by: [id number] Simvastatin (Zocor) 20 mg PO PM [facility] Stop: 04/04/19 20:59 Last Admin: 03/05/19 20:13 Dose: 20 mg Documented by: [id number] Discontinued Medications Acetaminophen (Tylenol) 1,000 mg PO NOW STA Stop: 03/05/19 12:23 Last Admin: 03/05/19 12:40 Dose: 1,000 mg Documented by: [id number] Sodium Chloride (Nss) 500 mls @ 999 mls/hr IV .Q31M [facility] Stop: 03/05/19 13:00 Last Infusion: 03/05/19 13:12 Dose: 0 mls/hr Documented by: [id number] Admin: 03/05/19 12:41 Dose: 999 mls/hr Documented by: [id number] Metoprolol Tartrate (Lopressor) 2.5 mg IV NOW STA Stop: 03/05/19 16:47 Last Admin: 03/05/19 17:10 Dose: 2.5 mg Documented by: [id number] Perflutren Lipid Microsphere (Definity) 2 ml IV ONCE ONE Stop: 03/06/19 07:23 Last Admin: 03/06/19 07:23 Dose: 2 ml Documented by: [id number] Medical Decision Making Differential Diagnosis Differential Diagnosis includes but is not limited to headache, tension headache, cluster headache, migraine, subarachnoid hemorrhage, meningitis, mass, central venous thrombus, concussion, trauma and epidural/subdural hemorrhage. Medical Records Attestation: I reviewed the patient's medical records. Home Medications Current Medication List: was personally reviewed by me Laboratory Data Attestation: I reviewed the patient's lab results. Result diagrams: 03/06/19 05:27 03/06/19 05:27 Lab Results 03/05/19 03/05/19 03/05/19 Range/Units 12:31 12:31 12:31 WBC 8.93 (4.8-10.8) K/uL RBC 4.91 (4.7-6.1) M/uL Hgb 15.3 (14.0-18.0) g/dL Hct 45.3 (42-52) % MCV 92.3 (80-100) fL MCH 31.2 (25-34) pg MCHC 33.8 (32-36) g/dL RDW Std Deviation 45.8 (36.4-46.3) fL RDW Coeff of Sarahy 13.6 (11.5-14.5) % Plt Count 206 (130-400) K/uL MPV 10.4 (7.4-10.4) fL Immature Gran % (Auto) 0.6 % Neut % (Auto) 56.3 % Lymph % (Auto) 31.0 % [place] % (Auto) 10.2 % Eos % (Auto) 1.7 % Baso % (Auto) 0.2 % Immature Gran # (Auto) 0.05 H (0.00-0.02) K/uL Neut # (Auto) 5.03 (1.4-6.5) K/uL Lymph # (Auto) 2.77 (1.2-3.4) K/uL [place] # (Auto) 0.91 H (0.11-0.59) K/uL Eos # (Auto) 0.15 (0-0.5) K/uL Baso # (Auto) 0.02 (0-0.2) K/uL ESR (0-14) mm/hr PT Cancelled INR Cancelled APTT Cancelled PTT Ratio Cancelled Sodium 137 (136-145) mmol/L Potassium 4.2 (3.5-5.1) mmol/L Chloride 105 (98-107) mmol/L Carbon Dioxide 22 (21-32) mmol/L Anion Gap 9.0 (3-11) BUN 21 H (7-18) mg/dl Creatinine 1.26 (0.6-1.4) mg/dl Est Cr Clr Drug Dosing 69.9 ml/min Est GFR ( Amer) 67.5 Est GFR (Non-Af Amer) 58.2 BUN/Creatinine Ratio 16.7 (10-20) Glucose 108 H (70-99) mg/dl Calcium 9.3 (8.5-10.1) mg/dl Magnesium 2.4 (1.8-2.4) mg/dl Total Bilirubin 0.6 (0.2-1) mg/dl AST 19 (15-37) U/L ALT 33 (12-78) U/L Alkaline Phosphatase 89 (45-117) U/L Troponin I < 0.015 (0-0.045) ng/ml C-Reactive Protein 0.63 H (0-0.29) mg/dl Total Protein 7.5 (6.4-8.2) gm/dl Albumin 3.6 (3.4-5.0) gm/dl Globulin 3.9 (2.5-4.0) gm/dl Albumin/Globulin Ratio 0.9 (0.9-2) TSH 1.870 (0.300-4.500) uIu/ml Urine Color Urine Appearance (Clear) Urine pH (4.5-7.5) Ur Specific [place] (1.000-1.030) Urine Protein (Negative) Urine Glucose (UA) (Negative) Urine Ketones (Negative) Urine Blood (Negative) Urine Nitrite (Negative) Urine Bilirubin (Negative) Urine Urobilinogen (Negative) Ur Leukocyte Esterase (Negative) Urine WBC (Auto) (0-5) /hpf Urine RBC (Auto) (0-4) /hpf U Hyaline Cast (Auto) (0-5) /lpf U Epithel Cells (Auto) (0-5) /lpf Urine Bacteria (Auto) (Negative) Lyme Disease IgG Ab (Negative) Lyme Disease IgM Ab (Negative) 03/05/19 03/05/19 03/05/19 Range/Units 12:31 12:51 13:44 WBC (4.8-10.8) K/uL RBC (4.7-6.1) M/uL Hgb (14.0-18.0) g/dL Hct (42-52) % MCV (80-100) fL MCH (25-34) pg MCHC (32-36) g/dL RDW Std Deviation (36.4-46.3) fL RDW Coeff of Sarahy (11.5-14.5) % Plt Count (130-400) K/uL MPV (7.4-10.4) fL Immature Gran % (Auto) % Neut % (Auto) % Lymph % (Auto) % [place] % (Auto) % Eos % (Auto) % Baso % (Auto) % Immature Gran # (Auto) (0.00-0.02) K/uL Neut # (Auto) (1.4-6.5) K/uL Lymph # (Auto) (1.2-3.4) K/uL [place] # (Auto) (0.11-0.59) K/uL Eos # (Auto) (0-0.5) K/uL Baso # (Auto) (0-0.2) K/uL ESR 33 H (0-14) mm/hr PT 10.6 INR 1.0 APTT 27.6 PTT Ratio 1.0 Sodium (136-145) mmol/L Potassium (3.5-5.1) mmol/L Chloride (98-107) mmol/L Carbon Dioxide (21-32) mmol/L Anion Gap (3-11) BUN (7-18) mg/dl Creatinine (0.6-1.4) mg/dl Est Cr Clr Drug Dosing ml/min Est GFR ( Amer) Est GFR (Non-Af Amer) BUN/Creatinine Ratio (10-20) Glucose (70-99) mg/dl Calcium (8.5-10.1) mg/dl Magnesium (1.8-2.4) mg/dl Total Bilirubin (0.2-1) mg/dl AST (15-37) U/L ALT (12-78) U/L Alkaline Phosphatase (45-117) U/L Troponin I (0-0.045) ng/ml C-Reactive Protein (0-0.29) mg/dl Total Protein (6.4-8.2) gm/dl Albumin (3.4-5.0) gm/dl Globulin (2.5-4.0) gm/dl Albumin/Globulin Ratio (0.9-2) TSH (0.300-4.500) uIu/ml Urine Color Yellow Urine Appearance Clear (Clear) Urine pH 6.0 (4.5-7.5) Ur Specific [place] 1.009 (1.000-1.030) Urine Protein Negative (Negative) Urine Glucose (UA) Negative (Negative) Urine Ketones Negative (Negative) Urine Blood Trace H (Negative) Urine Nitrite Negative (Negative) Urine Bilirubin Negative (Negative) Urine Urobilinogen Negative (Negative) Ur Leukocyte Esterase Negative (Negative) Urine WBC (Auto) 0 (0-5) /hpf Urine RBC (Auto) 0-4 (0-4) /hpf U Hyaline Cast (Auto) 0 (0-5) /lpf U Epithel Cells (Auto) 0-5 (0-5) /lpf Urine Bacteria (Auto) Negative (Negative) Lyme Disease IgG Ab (Negative) Lyme Disease IgM Ab (Negative) 03/05/19 Range/Units 13:46 WBC (4.8-10.8) K/uL RBC (4.7-6.1) M/uL Hgb (14.0-18.0) g/dL Hct (42-52) % MCV (80-100) fL MCH (25-34) pg MCHC (32-36) g/dL RDW Std Deviation (36.4-46.3) fL RDW Coeff of Sarahy (11.5-14.5) % Plt Count (130-400) K/uL MPV (7.4-10.4) fL Immature Gran % (Auto) % Neut % (Auto) % Lymph % (Auto) % [place] % (Auto) % Eos % (Auto) % Baso % (Auto) % Immature Gran # (Auto) (0.00-0.02) K/uL Neut # (Auto) (1.4-6.5) K/uL Lymph # (Auto) (1.2-3.4) K/uL [place] # (Auto) (0.11-0.59) K/uL Eos # (Auto) (0-0.5) K/uL Baso # (Auto) (0-0.2) K/uL ESR (0-14) mm/hr PT INR APTT PTT Ratio Sodium (136-145) mmol/L Potassium (3.5-5.1) mmol/L Chloride (98-107) mmol/L Carbon Dioxide (21-32) mmol/L Anion Gap (3-11) BUN (7-18) mg/dl Creatinine (0.6-1.4) mg/dl Est Cr Clr Drug Dosing ml/min Est GFR ( Amer) Est GFR (Non-Af Amer) BUN/Creatinine Ratio (10-20) Glucose (70-99) mg/dl Calcium (8.5-10.1) mg/dl Magnesium (1.8-2.4) mg/dl Total Bilirubin (0.2-1) mg/dl AST (15-37) U/L ALT (12-78) U/L Alkaline Phosphatase (45-117) U/L Troponin I (0-0.045) ng/ml C-Reactive Protein (0-0.29) mg/dl Total Protein (6.4-8.2) gm/dl Albumin (3.4-5.0) gm/dl Globulin (2.5-4.0) gm/dl Albumin/Globulin Ratio (0.9-2) TSH (0.300-4.500) uIu/ml Urine Color Urine Appearance (Clear) Urine pH (4.5-7.5) Ur Specific [place] (1.000-1.030) Urine Protein (Negative) Urine Glucose (UA) (Negative) Urine Ketones (Negative) Urine Blood (Negative) Urine Nitrite (Negative) Urine Bilirubin (Negative) Urine Urobilinogen (Negative) Ur Leukocyte Esterase (Negative) Urine WBC (Auto) (0-5) /hpf Urine RBC (Auto) (0-4) /hpf U Hyaline Cast (Auto) (0-5) /lpf U Epithel Cells (Auto) (0-5) /lpf Urine Bacteria (Auto) (Negative) Lyme Disease IgG Ab Negative (Negative) Lyme Disease IgM Ab Negative (Negative) Imaging Data Radiologist's Impression: Radiology results as stated below per my review and the radiologist's interpretation: CT head/brain wo con CLINICAL HISTORY: Severe headache. Atrial fibrillation. COMPARISON STUDY: No previous studies for comparison. TECHNIQUE: Axial CT of the brain is performed from the vertex to the skull base. IV contrast was not administered for this examination. A dose lowering technique was utilized adhering to the principles of ALARA. CT DOSE: 614.27 mGy.cm FINDINGS: No intra or extra-axial mass lesions are visualized. There is no CT evidence of acute cortical infarction. There is no evidence of midline shift. No calvarial fractures are visualized. There is a tiny hyperdense focus within the left medial temporal region. While likely representing calcification, a minimal hemorrhage cannot be excluded. A follow-up CT scan in 6 hours is recommended.. There are minimal white matter hypodensities likely on a small vessel basis. There is no evidence of pathologic ventricular dilatation. There is no evidence of acute sinusitis IMPRESSION: 1. Tiny hyperdense focus within the left medial temporal region. While likely representing calcification, a small hemorrhage cannot be excluded. A 6 hour follow-up CT scan is recommended. Electronically signed by: Michelet Jenkins M.D. 03/05/2019 1:10 PM SINGLE VIEW CHEST CLINICAL HISTORY: Generalized weakness. FINDINGS: An AP, portable, upright chest radiograph is compared to study dated 02/01/2018. The heart is mildly enlarged. The pulmonary vasculature is noncongested. There is chronic elevation of the right hemidiaphragm with associated atelectasis. The lungs and pleural spaces are otherwise clear. No pneumothorax is seen. The skeletal structures are osteopenic. The bony thorax is grossly intact. Degenerative change is noted throughout the thoracic spine. IMPRESSION: Mild cardiac enlargement with no active disease in the chest. Electronically signed by: Cristi Messer M.D. 03/05/2019 12:43 PM ECG Data Attestation: I personally reviewed and interpreted this ECG as follows: Indication: chest pain Rate (beats per minute): 112 Rhythm: atrial fibrillation Findings: no PAC, no PVC, no ST depression, no ST elevation and no ectopy Comparison ECG Date: from (02/01/18) Change: no significant change Blood Pressure Blood Pressure Findings: Normal blood pressure MDM Narrative The patient is a 69-year-old male who presented to the emergency department for an evaluation of headache and chest pain. The patient has a history of atrial fibrillation. He did not have any focal neurologic deficit or meningismus but he is on blood thinners. The patient's headache was treated with pain medication in the emergency department although I did not wish to treat him with anything too strong given his medication list. I discussed the patient's laboratory and radiographic studies with him. He was found to have an abnormality on CAT scan which required a follow-up MRI. Patient was agreeable to this plan. He was reevaluated multiple times. He was signed out to Dr. HOGAN pending MRI report. The patient was feeling better on subsequent reevaluation. Impression & Plan Chest pain, Atrial fibrillation, Headache Discharge Plan Visit Data *Final* Discharge Date/Time: 03/05/19 18:22 Chief Complaint: Chest Pain Stated Complaint: AFIB - DIZZY ED Provider: Temo Palencia Discharge Problem: Chest pain, Atrial fibrillation, Headache Patient Disposition: Admitted As Inpatient Discharge Instructions Interventions: ED Discharge Assessment Last Done: 03/05/19 18:22 Discharge Problem: Chest pain Qualifiers: Chest pain type: unspecified Qualified Code(s): R07.9 - Chest pain, unspecified Atrial fibrillation Qualifiers: Atrial fibrillation type: unspecified Qualified Code(s): I48.91 - Unspecified atrial fibrillation Headache Qualifiers: Headache type: unspecified Headache chronicity pattern: unspecified pattern Intractability: not intractable Qualified Code(s): R51 - Headache The singhibe's documentation has been prepared under my direction and personally reviewed by me in its entirety. I confirm that the note above accurately reflects all work, treatment, procedures, and medical decision making performed by me.
--- NOTE | 2019-03-05 12:45 | XRay Report ---
SINGLE VIEW CHEST CLINICAL HISTORY: Generalized weakness. FINDINGS: An AP, portable, upright chest radiograph is compared to study dated 02/01/2018. The heart is mildly enlarged. The pulmonary vasculature is noncongested. There is chronic elevation of the right hemidiaphragm with associated atelectasis. The lungs and pleural spaces are otherwise clear. No pneum othorax is seen. The skeletal structures are osteopenic. The bony thorax is grossly intact. Degenerat chana change is noted throughout the thoracic spine. IMPRESSION: Mild cardiac enlargement with no active disease in the chest. Electronically signed by: Cristi Messer M.D. 03/05/2019 12:43 PM
[2019-03-05 12:50] LABS: Basophils # (auto) 0.02 K/uL (0-0.2); Basophils % (auto) 0.2 %; Eosinophils # (auto) 0.15 K/uL (0-0.5); Eosinophils % (auto) 1.7 %; Hematocrit (blood only) 45.3 % (42-52); Hemoglobin 15.3 g/dL (14.0-18.0); Immature Granulocytes # (auto) 0.05 K/uL (0.00-0.02); Immature Granulocytes % (auto) 0.6 %; Lymphocytes # (auto) 2.77 K/uL (1.2-3.4); Mean Corpuscular Hemoglobin 31.2 pg (25-34); Mean Corpuscular Hgb Conc 33.8 g/dL (32-36); Mean Corpuscular Volume 92.3 fL (80-100); Mean Platelet Volume 10.4 fL (7.4-10.4); Monocytes # (auto) 0.91 K/uL (0.11-0.59); Monocytes % (auto) 10.2 %; Neutrophils # (auto) 5.03 K/uL (1.4-6.5); Neutrophils % (auto) 56.3 %; Platelet Count 206 K/uL (130-400); RDW Coefficient of Variation 13.6 % (11.5-14.5); RDW Standard Deviation 45.8 fL (36.4-46.3); Red Blood Count 4.91 M/uL (4.7-6.1); White Blood Count 8.93 K/uL (4.8-10.8)
[2019-03-05 13:08] LABS: Alanine Aminotransferase 33 U/L (12-78); Albumin Level 3.6 gm/dl (3.4-5.0); Aspartate Aminotransferase 19 U/L (15-37); BUN Creatinine Ratio 16.7 (10-20); Blood Urea Nitrogen 21 mg/dl (7-18); C Reactive Protein 0.63 mg/dl (0-0.29); Calcium 9.3 mg/dl (8.5-10.1); Carbon Dioxide 22 mmol/L (21-32); Chloride 105 mmol/L (98-107); Creatinine Clr Calc Pharmacy 69.9 ml/min; Est GFR (African American) 67.5; Est GFR (Non-African American) 58.2; Glucose 108 mg/dl (70-99); Magnesium 2.4 mg/dl (1.8-2.4); Potassium 4.2 mmol/L (3.5-5.1); Sodium 137 mmol/L (136-145)
[2019-03-05 13:09] LABS: Appearance Urine Clear (Clear); Bacteria Urine Automated Negative (Negative); Bilirubin Urine Negative (Negative); Blood Urine Trace (Negative); Cast Urine Automated 0 /lpf (0-5); Color Urine Yellow; Epithelial Cell Urine Auto 0-5 /lpf (0-5); Glucose Urine UA Negative (Negative); Ketones Urine Negative (Negative); Leukocyte Esterase Urine Negative (Negative); Nitrite Urine Negative (Negative); Protein Urine Negative (Negative); RBC Urine Automated 0-4 /hpf (0-4); Specific Gravity Urine 1.009 (1.000-1.030); Urobilinogen Urine Negative (Negative); WBC Urine Automated 0 /hpf (0-5)
--- NOTE | 2019-03-05 13:11 | CT Scan Report ---
CT head/brain wo con CLINICAL HISTORY: Severe headache. Atrial fibrillation. COMPARISON STUDY: No previous studies for comparison. TECHNIQUE: Axial CT of the brain is performed from the vertex to the skull base. IV contrast was not administered for this examination. A dose lowering technique was utilized adhering to the principles of ALARA. CT DOSE: 614.27 mGy.cm FINDINGS: No intra or extra-axial mass lesions are visualized. There is no CT evidence of acute cortical infarc tion. There is no evidence of midline shift. No calvarial fractures are visualized. There is a tiny h yperdense focus within the left medial temporal region. While likely representing calcification, a mi nimal hemorrhage cannot be excluded. A follow-up CT scan in 6 hours is recommended.. There are minima l white matter hypodensities likely on a small vessel basis. There is no evidence of pathologic ventricular dilatation. There is no evidence of acute sinusitis IMPRESSION: 1. Tiny hyperdense focus within the left medial temporal region. While likely representing calcificat ion, a small hemorrhage cannot be excluded. A 6 hour follow-up CT scan is recommended. Electronically signed by: Michelet Jenkins M.D. 03/05/2019 1:10 PM
[2019-03-05 13:19] LABS: Albumin Globulin Ratio 0.9 (0.9-2); Alkaline Phosphatase 89 U/L (45-117); Bilirubin,Total 0.6 mg/dl (0.2-1); Globulin 3.9 gm/dl (2.5-4.0); Total Protein 7.5 gm/dl (6.4-8.2); Troponin I < 0.015 ng/ml (0-0.045)
[2019-03-05 14:07] LABS: Partial Thromboplastin Time 27.6 Seconds (21.0-31.0); Prothrombin Time 10.6 Seconds (9.0-12.0)
--- NOTE | 2019-03-05 15:51 | Magnetic Resonance Report ---
MR brain wo con CLINICAL HISTORY: 69 years-old Male presenting with SWANSON, abnormal head CT. TECHNIQUE: Multisequence, multiplanar MR imaging of the brain was performed without the use of intrav enous contrast. IV contrast: None. COMPARISON: Noncontrast CT head from earlier today. FINDINGS: Localizer images: Unremarkable. Bone marrow signal intensity within the calvarium within normal limits. Normal midline sagittal structures. Ventricles and sulci normal in size. No mass effect or midline sh ift. No restricted diffusion or hemorrhage. Periventricular and subcortical white matter T2/FLAIR hyp erintensity, nonspecific but likely indicative of chronic small vessel ischemic change. No extra-axial fluid collection. T2 skull base flow voids preserved. IMPRESSION: 1. Chronic small vessel ischemic change. No acute intracranial abnormality. The finding on CT was ap parently artifactual. Electronically signed by: Arthur Aguila M.D. 03/05/2019 3:49 PM
[2019-03-05 16:03] LABS: Lyme Ab IgG w/WB Rflx Negative (Negative); Lyme Ab IgM w/WB Rflx Negative (Negative)
--- NOTE | 2019-03-05 16:39 | Emergency Department Note ---
ED Visit Note The patient was taken in signout from Dr. Sheriff at the change of shift. Please see that note for details. The patient was pending MRI for an abnormal CT finding. MRI was negative. CT was felt to be artifactual per radiology. The patient did note chest discomfort and nausea. His atrial fibrillation is borderline rapid ventricular response. He is anticoagulated on Xarelto. The patient was given a dose of IV Lopressor. Internal medicine was consulted for further management. Lyme testing did come back negative. ESR and CRP minimally elevated. .
[2019-03-05] MEDS ORDERED: METOPROLOL TARTRATE 1 MG/ML VIAL IV STA (16:46)
--- NOTE | 2019-03-05 17:41 | History & Physical Report ---
Date of Service March 05, 2019 Assessment & Plan (1) Chest pain: (2) Atrial fibrillation with RVR: -Admit to telemetry -Patient presenting from home with various complaints including chest pain, palpitations, nausea, tiredness, headache -In the ED, patient found to be in atrial fibrillation with variable rates, RVR times; has history of A. fib, typically managed on atenolol and Xarelto -Head imaging was done for work-up of headache; CT head showed questionable tiny hyperdense focus within the left medial temporal region however brain MRI was then obtained that was negative for acute findings -Chest pain seems to be atypical; initial troponin negative, EKG without acute ST findings; continue to cycle cardiac enzymes, check resting echo -Noted last stress echo 2017 negative for ischemia -Symptoms may be due to A. fib with RVR vs. viral illness; negative Lyme testing, no other signs of infection, electrolytes WNL -will discontinue atenolol in favor of metoprolol 25 mg twice daily -Continue Xarelto -Supportive care with IVF, PRN Tylenol (3) Hypertension: -BP controlled, continue amlodipine; atenolol being changed to metoprolol as above (4) Dyslipidemia: -Continue statin (5) DVT prophylaxis: -On Xarelto History of Present Illness Chief Complaint: Chest pain Primary Care Provider: Giovani Ricks MD 69-year-old male who presents the ED for evaluation of chest pain. Patient reports last evening he developed some palpitations and nausea. Patient has history of paroxysmal atrial fibrillation and reports that he normally does not have any palpitations. This morning, when patient woke up he reports he had left-sided chest pain. He describes the pain as a dull ache with some radiation to his left side. No radiation into the jaw, neck, shoulder, arm. Pain has been consistent and not worse with exertion. Denies any specific alleviating factors. He reports associated nausea, tiredness, bilateral temporal headache. No shortness of breath. Denies orthopnea and lower extremity edema. No abdominal pain, vomiting, diarrhea. Denies other recent illnesses, fevers, chills. Has noted some increased urinary frequency. In the ED, patient was found to be in atrial fibrillation with variably uncontrolled rates into the 110s. Initial troponin is negative, EKG does not show any acute ST changes. CT head was obtained that questioned a tiny hyperdense focus within the left medial temporal region. Brain MRI was then obtained that was negative for acute findings. Other labs are unremarkable. Patient was given IVF, Tylenol, IV metoprolol 2.5 mg. Allergies Allergy/AdvReac Type Severity Reaction Status Date / Time celecoxib Allergy Intermediate HIVES Verified 03/05/19 13:21 lisinopril Allergy Unknown HEADACHE, Verified 03/05/19 13:21 DIZZINESS Sulfa (Sulfonamide Allergy Unknown HIVES Verified 03/05/19 13:21 Antibiotics) Home Medications Home Medications Medication Instructions Recorded Confirmed Type acyclovir [Zovirax] 1 applic TOPICAL Q2H PRN 03/05/19 03/05/19 History allopurinol 100 mg PO BID 03/05/19 03/05/19 History amlodipine 5 mg PO QAM 03/05/19 03/05/19 History atenolol 50 mg PO HS 03/05/19 03/05/19 History fluticasone propionate [Flonase 2 spray INTRANASAL DAILY 03/05/19 03/05/19 History Allergy Relief] [id number] acid-lutein [Centrum 1 tab PO DAILY 03/05/19 03/05/19 History Silver] pantoprazole 40 mg PO QAM 03/05/19 03/05/19 History rivaroxaban [Xarelto] 20 mg PO PM 03/05/19 03/05/19 History simvastatin 20 mg PO PM 03/05/19 03/05/19 History valacyclovir [Valtrex] 1,000 mg PO BID PRN 03/05/19 03/05/19 History Past Med/Surg History Medical History GERD (gastroesophageal reflux disease) (Chronic) Hypertension (Chronic) GORDON (obstructive sleep apnea) (Chronic) Gout (Chronic) Dyslipidemia (Chronic) Paroxysmal atrial fibrillation (Chronic) Prostate cancer (Chronic 10/26/11) "Rising PSA with a family history of prostate cancer Status post ultrasound-guided biopsies 10/26/2011 revealing adenocarcinoma the prostate [place] 3+3 pretreatment PSA 5.03 status post seed implant with cesium 131 as monotherapy 06/11/2012 received 115 Gy " Surgical History History of vasectomy (Chronic) History of total left knee replacement (Chronic) S/P rotator cuff repair (Chronic) S/P tonsillectomy and adenoidectomy (Chronic) S/P lumbar laminectomy (Chronic 07/13/14) S/P lumbar spinal fusion (Chronic) Family History Mother Colorectal cancer Father COPD (chronic obstructive pulmonary disease) Social History Preferred Language: Divehi Communication Ability: Effective 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 Beliefs That Will Affect Care: None Current Living Situation: Spouse Other Information That Helps Us Care for You: No Feels Safe at Home: Yes Safety Concerns: Feels Safe At This Time Smoking Status: Former smoker Hx Alcohol Use: Yes Alcohol Intake Frequency: Rarely Hx Substance Use: No Review of Systems Review of Systems: ROS per HPI, all other systems reviewed and negative Physical Exam Constitutional: WD/WN, vitals as above Eyes: PERRL, conjunctivae normal, anicteric sclerae ENMT: external ear and nose normal, oropharynx normal Respiratory: normal respiratory effort, lungs clear to auscultation Cardiovascular: Rate/Rhythm: + tachycardic and + irregularly irregular Vessels: normal peripheral pulses Extremities: no edema Gastrointestinal (Abdomen): normal bowel sounds, soft, nontender, no hepatosplenomegaly Musculoskeletal: no cyanosis or clubbing, extremities motor strength 5/5 Skin: no rashes, warm and dry Neurologic: PERRL, EOMI, accommodation nl, no face palsy, no dysarthria Psychiatric: A+Ox3, euthymic affect Results & Data Vital Signs (Past 12 Hours) Vital Signs Temp Pulse Pulse Resp BP BP Pulse Ox 03/05/19 17:01 105 H 18 142/81 H 96 03/05/19 16:30 111 H 13 118/65 94 03/05/19 16:00 87 15 123/88 95 03/05/19 15:49 90 19 101/70 97 03/05/19 14:30 98 H 15 109/85 96 03/05/19 14:00 96 H 17 124/85 94 03/05/19 13:34 105 H 21 121/78 95 03/05/19 13:05 115 H 11 L 94 03/05/19 12:40 97 03/05/19 12:38 97 03/05/19 12:30 112 H 14 144/94 H 97 03/05/19 12:09 36.7 C 96 H 16 155/92 H 96 Laboratory Results Short CBC 03/05/19 Range/Units 12:31 WBC 8.93 (4.8-10.8) K/uL Hgb 15.3 (14.0-18.0) g/dL Hct 45.3 (42-52) % Plt Count 206 (130-400) K/uL BMP 03/05/19 12:31 Sodium 137 Potassium 4.2 Chloride 105 Carbon Dioxide 22 BUN 21 H Creatinine 1.26 Glucose 108 H Calcium 9.3 Cardiac Enzymes 03/05/19 Range/Units 12:31 Troponin I < 0.015 (0-0.045) ng/ml Liver Function 03/05/19 Range/Units 12:31 Total Bilirubin 0.6 (0.2-1) mg/dl AST 19 (15-37) U/L ALT 33 (12-78) U/L Alkaline Phosphatase 89 (45-117) U/L Albumin 3.6 (3.4-5.0) gm/dl Urine 03/05/19 Range/Units 12:51 Urine Color Yellow Urine Appearance Clear (Clear) Urine pH 6.0 (4.5-7.5) Ur Specific [place] 1.009 (1.000-1.030) Urine Protein Negative (Negative) Urine Glucose (UA) Negative (Negative) Diagnostic Findings HEAD CT IMPRESSION: 1. Tiny hyperdense focus within the left medial temporal region. While likely representing calcification, a small hemorrhage cannot be excluded. A 6 hour follow-up CT scan is recommended. CXR IMPRESSION: Mild cardiac enlargement with no active disease in the chest. BRAIN MRI IMPRESSION: 1. Chronic small vessel ischemic change. No acute intracranial abnormality. The finding on CT was apparently artifactual. Code Status & VTE Plan VTE Prophylaxis Plan VTE Prophylaxis will be ordered: Yes Supervising Physician Co-Signing Physician Notes Attending addendum The patient was seen and examined in the emergency room He has been complaining of headache with dizziness and chest tightness since yesterday evening Denies any chest pain, palpitation or shortness of breath No fever and/or chills and no problem with urine and about In the ER he was hemodynamically stable and heparin CT of the head and MRI of the head are unremarkable His EKG did show atrial fibrillation with rapid ventricular response of 112 He was admitted to telemetry unit for continuation of care Examination No apparent distress at rest He was hemodynamically stable with heart rate up around 100/mn Chest-clear to auscultate bilaterally Heart-S1-2, regular, no murmur appreciated Abdomen-soft, benign, nontender Extremity-no edema 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 No focal sensory or motor deficits appreciated Admission labs and imaging studies including EKGs noted Headache with nausea and weakness-no apparent cause found, could be viral has been improving Atrial fibrillation with RVR-we will change atenolol to Lopressor for better control heart, echocardiogram Agree with assessment plan as outlined above by Venus Duran
[2019-03-05] MEDS: SODIUM CHLORIDE 0.9% 1000ML 1,000 ML IV SCH (19:23)
[2019-03-05] MEDS: ACETAMINOPHEN 325 MG TAB PO PRN ×2 (19:23→23:54)
[2019-03-05] MEDS: RIVAROXABAN 20 MG TAB PO SCH (20:13)
[2019-03-05] MEDS: allopurinoL 100 MG TAB PO SCH (20:13)
[2019-03-05] MEDS: SIMVASTATIN 20 MG TAB PO SCH (20:13)
[2019-03-05] MEDS: METOPROLOL TARTRATE 25 MG TAB PO SCH ×2 (20:14→20:21)
[2019-03-06] MEDS: ACETAMINOPHEN 325 MG TAB PO PRN ×3 (04:05→17:19)
[2019-03-06 05:49] LABS: Hematocrit (blood only) 41.5 % (42-52); Hemoglobin 14.2 g/dL (14.0-18.0); Mean Corpuscular Hemoglobin 31.6 pg (25-34); Mean Corpuscular Hgb Conc 34.2 g/dL (32-36); Mean Corpuscular Volume 92.2 fL (80-100); Mean Platelet Volume 10.1 fL (7.4-10.4); Platelet Count 183 K/uL (130-400); RDW Coefficient of Variation 13.6 % (11.5-14.5); RDW Standard Deviation 45.8 fL (36.4-46.3); White Blood Count 9.18 K/uL (4.8-10.8)
[2019-03-06] MEDS: SODIUM CHLORIDE 0.9% 1000ML 1,000 ML IV SCH ×3 (06:06→23:28)
[2019-03-06 06:25] LABS: BUN Creatinine Ratio 18.8 (10-20); Calcium 8.2 mg/dl (8.5-10.1); Creatinine Clr Calc Pharmacy 72.3 ml/min; Est GFR (African American) 70.9; Est GFR (Non-African American) 61.1; Potassium 4.1 mmol/L (3.5-5.1)
[2019-03-06] MEDS ORDERED: PERFLUTREN LIPID MICROSPHERE (DEFINITY) IV ONE (07:22)
[2019-03-06] MEDS: METOPROLOL TARTRATE 25 MG TAB PO SCH (08:30)
[2019-03-06] MEDS: CEROVITE ADV FORMULA TAB PO SCH (08:31)
[2019-03-06] MEDS: AMLODIPINE BESYLATE 5 MG TAB PO SCH (08:31)
[2019-03-06] MEDS: allopurinoL 100 MG TAB PO SCH ×2 (08:32→20:59)
[2019-03-06] MEDS: PANTOprazole 40 MG TAB PO SCH (08:32)
--- NOTE | 2019-03-06 10:12 | Hospitalist Progress Note ---
Date of Service March 06, 2019 Assessment & Plan (1) Atrial fibrillation with RVR: Present on admission with chest discomfort Had history of paroxysmal afib EKG showed Afib Received IV metoprolol Atenolol changed to Metoprolol on admission Tele monitor reviewed and remained in Afib with HR btw 90 to low 100's Continue Xarelto ( has not been missing a dose) cardiology consult ECHO pending Will keep NPO for now for possible cardiovert Continue monitor in telemetry (2) Chest pain: Mostly due to Afib Troponin x3 negative EKG showed Afib with HR 100's Continue Metoprolol ECHO pending (3) Hypertension: BP controlled continue amlodipine Atenolol changed to metoprolol (4) Dyslipidemia: Continue statin (5) DVT prophylaxis: On Xarelto CODE STATUS FULL CODE Disposition Continue monitor in tele Subjective Pt was seen and examined. Lying in bed with no distress Pt said that he could tell that something was wrong on Sunday night when he had chest discomfort He said that in the past when he is in Afib he never knew because he had no symptoms Pt said that he feels much better today Denies any chest pain, palpitation, dizziness and SOB Physical Exam Physical Exam: General- No acute distress Head- atraumatic Eyes- PERRL, EOMI, ENT- oropharynx clear Neck- supple, no JVD Lungs- clear to auscultation Heart- irregular rhythm; no murmur Abdomen- normal bowel sounds, soft, nontender Extremities- no calf tenderness Neuro- alert, oriented x 3; PERRL, EOMI; no facial palsy; no dysarthria Skin- warm & dry Results & Data Vital Signs (Past 12 Hours) Vital Signs Temp Pulse Resp BP Pulse Ox 03/06/19 07:25 36.3 C L 97 H 16 126/80 95 03/06/19 03:26 36.9 C 76 18 103/69 96 03/05/19 23:45 36.5 C 103 H 19 135/83 93
[2019-03-06] MEDS: SOTALOL HCL 80 MG TAB PO SCH ×2 (13:05→20:59)
--- NOTE | 2019-03-06 15:59 | Cardiology Consultation ---
Date of Consultation March 06, 2019 Assessment & Plan (1) Atrial fibrillation with RVR: Now symptomatic with rapid ventricular response The patient has been on Xarelto uninterrupted a year now and specifically notes that he is not missed any doses within the last month. Given the fact he is fully anticoagulated the options of rate versus rhythm control were discussed with he and his at great lengths. I discussed the pros and cons of this approach with the patient and his . He was counseled given the increasing frequency of his atrial fibrillation and the fact that he is now symptomatic with rapid ventricular response I do believe initiation of sotalol therapy would be appropriate. They both state that they understand, agree with this plan and are accepting of the risks of initiating antiarrhythmic therapy. He will be started on sotalol now and she remained in normal sinus rhythm in the a.m. we will proceed with DC cardioversion. He will be made n.p.o. after midnight and obviously Xarelto will be continued uninterrupted. (2) Chest pain: Likely secondary to rapid ventricular response Given the lack of objective findings of ischemia I believe that outpatient Lexiscan nuclear stress test may be appropriate after discharge. (3) Hypertension: Controlled We will continue his outpatient dose of amlodipine History of Present Illness Reason for Consultation: Atrial fibrillation with rapid ventricular response Requesting Physician: Dr. Cordova Attending Physician: Rishabh Cordova MD History of Present Illness It was my pleasure to see Mr. Haddad in consultation today March 06, 2019. He is a very pleasant 69-year-old gentleman who normally follows with Dr. Gaffney of our cardiology practice for his history of paroxysmal atrial fibrillation. He presented to [facility] on 03/05/2019 with complaints of chest discomfort. He states that he was in his normal state of health up until the eighth when he started developing a headache and feeling some palpitations in his chest. He states that this is very unusual for him and that he is never felt his atrial fibrillation before. He thought it might be due to allergies so he went to bed last night however when he woke up the next morning he started developing chest discomfort. He described as a pressure sensation across his left precordium particularly under his left breast. He notes that this was associated with worsening of his palpitations, lightheadedness and some shortness of breath. He became concerned and came into the emergency department. Upon arrival to the emergency department he was found to be in atrial fibrillation with rapid ventricular response he was admitted to telemetry and his atenolol was given was changed to metoprolol. His Xarelto was continued uninterrupted. Upon further questioning he states that he is been on Xarelto faithfully and has not missed any doses specifically within the last month. He states that after being started on metoprolol his rates improved his chest discomfort resolved and is now comfortable at rest. Allergies Allergy/AdvReac Type Severity Reaction Status Date / Time celecoxib Allergy Intermediate HIVES Verified 03/05/19 13:21 lisinopril Allergy Unknown HEADACHE, Verified 03/05/19 13:21 DIZZINESS Sulfa (Sulfonamide Allergy Unknown HIVES Verified 03/05/19 13:21 Antibiotics) Home Medications Home Medications Medication Instructions Recorded Confirmed Type acyclovir [Zovirax] 1 applic TOPICAL Q2H PRN 03/05/19 03/05/19 History allopurinol 100 mg PO BID 03/05/19 03/05/19 History amlodipine 5 mg PO QAM 03/05/19 03/05/19 History atenolol 50 mg PO HS 03/05/19 03/05/19 History fluticasone propionate [Flonase 2 spray INTRANASAL DAILY 03/05/19 03/05/19 History Allergy Relief] [id number] acid-lutein [Centrum 1 tab PO DAILY 03/05/19 03/05/19 History Silver] pantoprazole 40 mg PO QAM 03/05/19 03/05/19 History rivaroxaban [Xarelto] 20 mg PO PM 03/05/19 03/05/19 History simvastatin 20 mg PO PM 03/05/19 03/05/19 History valacyclovir [Valtrex] 1,000 mg PO BID PRN 03/05/19 03/05/19 History Patient History Medical History GERD (gastroesophageal reflux disease) (Chronic) Hypertension (Chronic) GORDON (obstructive sleep apnea) (Chronic) Gout (Chronic) Dyslipidemia (Chronic) Paroxysmal atrial fibrillation (Chronic) Prostate cancer (Chronic 10/26/11) "Rising PSA with a family history of prostate cancer Status post ultrasound-guided biopsies 10/26/2011 revealing adenocarcinoma the prostate [place] 3+3 pretreatment PSA 5.03 status post seed implant with cesium 131 as monotherapy 06/11/2012 received 115 Gy " Surgical History History of vasectomy (Chronic) History of total left knee replacement (Chronic) S/P rotator cuff repair (Chronic) S/P tonsillectomy and adenoidectomy (Chronic) S/P lumbar laminectomy (Chronic 07/13/14) S/P lumbar spinal fusion (Chronic) Family History Mother Colorectal cancer Father COPD (chronic obstructive pulmonary disease) Social History Preferred Language: Panamanian Communication Ability: Effective 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 No acute distress. HEENT: Normocephalic, atraumatic. Pupils equal, round and reactive to light an d accommodation. Extraocular muscles are intact. Anicteric sclera. Moist mucous membranes. Neck: No JVD. No bruit. Cardiovascular: irregularly irregular, unable to appreciate murmur, rub or gall op. Pulmonary: Clear to auscultation bilaterally. No rales, rhonchi, or wheezing. Abdomen: Bowel sounds x 4, soft. No rebound, guarding or tenderness. No organomegaly. Extremities: No clubbing, cyanosis or edema. +2 pedal pulses bilaterally. Skin: Warm and dry. Results & Data Vital Signs (Past 12 Hours) Vital Signs Temp Pulse Resp BP Pulse Ox 03/06/19 11:22 36.5 C 70 16 130/76 93 03/06/19 07:25 36.3 C L 97 H 16 126/80 95 (1) Chest pain Chest pain type: unspecified Qualified Code(s): R07.9 - Chest pain, unspecified
[2019-03-06] MEDS ORDERED: TRAMADOL HCL 50 MG TABLET PO PRN (18:20)
[2019-03-06] MEDS: RIVAROXABAN 20 MG TAB PO SCH (20:58)
[2019-03-06] MEDS: SIMVASTATIN 20 MG TAB PO SCH (20:59)
[2019-03-07] MEDS: ACETAMINOPHEN 325 MG TAB PO PRN (08:22)
[2019-03-07] MEDS: allopurinoL 100 MG TAB PO SCH ×2 (08:22→20:27)
[2019-03-07] MEDS: AMLODIPINE BESYLATE 5 MG TAB PO SCH (08:22)
[2019-03-07] MEDS: PANTOprazole 40 MG TAB PO SCH (08:22)
[2019-03-07] MEDS: CEROVITE ADV FORMULA TAB PO SCH (08:22)
[2019-03-07] MEDS: SOTALOL HCL 80 MG TAB PO SCH ×2 (08:22→20:27)
[2019-03-07] MEDS: SODIUM CHLORIDE 0.9% 1000ML 1,000 ML IV SCH (09:45)
--- NOTE | 2019-03-07 12:13 | Cardiology Progress Note ---
Date of Service March 07, 2019 Assessment & Plan (1) Atrial fibrillation with RVR: spontaneously converted to sinus tolerating Sotalol load without issue, QTc relatively unchaged at 464 ms cont Sotalol 80mg bid daily ekg's (2) Chest pain: Likely secondary to rapid ventricular response Given the lack of objective findings of ischemia I believe that outpatient Lexiscan nuclear stress test may be appropriate after discharge. (3) Hypertension: Controlled We will continue his outpatient dose of amlodipine Subjective Pt seen and examined, with at bedside. States that he feels well. No recurrence of chest pain or palpitations. Denies sob, lightheadedness or dizziness. tele reviewed: sinus rhythm ekg: sinus rhythm with QTc of 464 ms Review of Systems Review of Systems: All systems reviewed & are unremarkable except as noted in HPI & below Physical Exam Physical Exam: General: Awake, alert and oriented x 3. No acute distress. HEENT: Normocephalic, atraumatic. Pupils equal, round and reactive to light and accommodation. Extraocular muscles are intact. Anicteric sclera. Moist mucous membranes. Neck: No JVD. No bruit. Cardiovascular: Regular. Positive S-4. Normal S-1 and S-2. No S-3. No murmurs or rubs. Pulmonary: Clear to auscultation B/L. No rales, rhonchi or wheezing Abdomen: Bowel sounds x 4, soft. No rebound, guarding or tenderness. No organomegaly. Extremities: No clubbing, cyanosis or edema. +2 pedal pulses bilaterally. Skin: Warm and dry. Results & Data Vital Signs (Past 12 Hours) Vital Signs Temp Pulse Resp BP Pulse Ox 03/07/19 07:41 36.4 C L 64 16 135/79 03/07/19 04:56 36.5 C 61 18 127/73 96 (1) Chest pain Chest pain type: unspecified Qualified Code(s): R07.9 - Chest pain, unspecified
[2019-03-07] MEDS ORDERED: Nursing to Pharmacy Communication ONE (18:31)
--- NOTE | 2019-03-07 19:23 | Hospitalist Progress Note ---
Date of Service March 07, 2019 Assessment & Plan (1) Atrial fibrillation with RVR: Present on admission with chest discomfort Had history of paroxysmal afib Converted back to NSR Cardiology on board [place] starting on Sotalol BID Continue monitor in Tele Continue Xarelto (2) Chest pain: Mostly due to Afib Troponin x3 negative ECHO showed no wall motion abnormality Resolved (3) Hypertension: BP controlled Continue amlodipine Stable (4) Dyslipidemia: Continue statin (5) DVT prophylaxis: On Xarelto CODE STATUS FULL CODE Disposition Continue monitor in tele Subjective Pt was seen and examined Sitting in chair with no distress Pt said that he feels much better He said that he has been walking around with no distress Denies any chest pain, palpitation, dizziness and SOB Physical Exam Physical Exam: General- No acute distress Head- atraumatic Eyes- PERRL, EOMI, ENT- oropharynx clear Neck- supple, no JVD Lungs- clear to auscultation Heart- regular rhythm; no murmur Abdomen- normal bowel sounds, soft, nontender Extremities- no calf tenderness Neuro- alert, oriented x 3; PERRL, EOMI; no facial palsy; no dysarthria Skin- warm & dry Results & Data Vital Signs (Past 12 Hours) Vital Signs Temp Pulse Resp BP Pulse Ox 03/07/19 15:46 37.1 C 62 16 134/79 98 03/07/19 11:58 36.4 C L 63 16 150/67 H 97 03/07/19 07:41 36.4 C L 64 16 135/79
[2019-03-07] MEDS: RIVAROXABAN 20 MG TAB PO SCH (20:26)
[2019-03-07] MEDS: SIMVASTATIN 20 MG TAB PO SCH (20:27)
[2019-03-08] MEDS: AMLODIPINE BESYLATE 5 MG TAB PO SCH (08:40)
[2019-03-08] MEDS: CEROVITE ADV FORMULA TAB PO SCH (08:40)
[2019-03-08] MEDS: SOTALOL HCL 80 MG TAB PO SCH (08:40)
[2019-03-08] MEDS: PANTOprazole 40 MG TAB PO SCH (08:40)
[2019-03-08] MEDS: allopurinoL 100 MG TAB PO SCH (08:40)
--- NOTE | 2019-03-08 12:06 | Cardiology Progress Note ---
Date of Service March 08, 2019 Assessment & Plan (1) Atrial fibrillation with RVR: spontaneously converted to sinus tolerating Sotalol load without issue, QTc relatively unchaged at 46 ms will give evening dose early today at 1600 check ekg at 1700, if QTc remains stable, discharge to home cont Xarelto my office will call to arrange f/u with me in 4 weeks I have already sent prescription for Sotalol to pharmacy and his has picked it up. (2) Chest pain: Likely secondary to rapid ventricular response Given the lack of objective findings of ischemia I believe that outpatient Lexiscan nuclear stress test may be appropriate after discharge. my office will call to arrange (3) Hypertension: Controlled We will continue his outpatient dose of amlodipine Subjective Pt seen and examined, oob in chair without complaint. Denies cp, sob, palpitations, lightheadedness or dizziness. tele reviewed: sinus rhythm without arrhythmia or significant ectopy. Review of Systems Review of Systems: All systems reviewed & are unremarkable except as noted in HPI & below Physical Exam Physical Exam: General: Awake, alert and oriented x 3. No acute distress. HEENT: Normocephalic, atraumatic. Pupils equal, round and reactive to light and accommodation. Extraocular muscles are intact. Anicteric sclera. Moist mucous membranes. Neck: No JVD. No bruit. Cardiovascular: Regular. Positive S-4. Normal S-1 and S-2. No S-3. No murmurs or rubs. Pulmonary: Clear to auscultation B/L. No rales, rhonchi or wheezing Abdomen: Bowel sounds x 4, soft. No rebound, guarding or tenderness. No organomegaly. Extremities: No clubbing, cyanosis or edema. +2 pedal pulses bilaterally. Skin: Warm and dry. Results & Data Vital Signs (Past 12 Hours) Vital Signs Temp Pulse Resp BP BP Pulse Ox 03/08/19 07:10 36.7 C 66 16 123/77 95 03/08/19 04:02 36.9 C 68 20 122/71 95 (1) Chest pain Chest pain type: unspecified Qualified Code(s): R07.9 - Chest pain, unspecified
[2019-03-08] MEDS ORDERED: SOTALOL HCL 80 MG TAB PO ONE (16:00)
--- NOTE | 2019-03-08 17:24 | Hospitalist Progress Note ---
Date of Service March 08, 2019 Assessment & Plan (1) Atrial fibrillation with RVR: Present on admission with chest discomfort Had history of paroxysmal afib Converted back to NSR Cardiology on board Tolerated Sotalol, EKG showed QTC stable No arrhythmia on tele monitor Case discussed with cardiology and recommended to continue Sotalol BID Continue Xarelto Follow up with Cardiology in 4 weeks (2) Chest pain: Mostly due to Afib Troponin x3 negative ECHO showed no wall motion abnormality Cardiology will arrange to have outpatient Lexiscan nuclear stress test Resolved (3) Hypertension: BP controlled Continue amlodipine Stable (4) Dyslipidemia: Continue statin (5) DVT prophylaxis: On Xarelto CODE STATUS FULL CODE Disposition Discharge home today Follow up with your primary care provider Dr. Ricks on 03/13 @ 11:05 AM Follow up with cardiology in 4 weeks Subjective Pt was seen and examined Lying in bed with no distress with at bedside Pt said that he feels fine He said that he walked around with no distress Denies any chest pain, palpitation, dizziness and SOB Physical Exam Physical Exam: General- No acute distress Head- atraumatic Eyes- PERRL, EOMI, ENT- oropharynx clear Neck- supple, no JVD Lungs- clear to auscultation Heart- regular rhythm; no murmur Abdomen- normal bowel sounds, soft, nontender Extremities- no calf tenderness Neuro- alert, oriented x 3; PERRL, EOMI; no facial palsy; no dysarthria Skin- warm & dry Results & Data Vital Signs (Past 12 Hours) Vital Signs Temp Pulse Resp BP BP Pulse Ox 03/08/19 17:12 36.6 C 64 16 149/81 H 122/71 96 03/08/19 16:08 36.6 C 64 16 149/81 H 96 03/08/19 11:40 36.3 C L 57 L 16 132/78 03/08/19 07:10 36.7 C 66 16 123/77 95
--- NOTE | 2019-03-10 09:39 | Discharge Summary ---
Date of Service March 08, 2019 Admission HPI Per Admitting Provider 69-year-old male who presents the ED for evaluation of chest pain. Patient reports last evening he developed some palpitations and nausea. Patient has history of paroxysmal atrial fibrillation and reports that he normally does not have any palpitations. This morning, when patient woke up he reports he had left-sided chest pain. He describes the pain as a dull ache with some radiation to his left side. No radiation into the jaw, neck, shoulder, arm. Pain has been consistent and not worse with exertion. Denies any specific alleviating factors. He reports associated nausea, tiredness, bilateral temporal headache. No shortness of breath. Denies orthopnea and lower extremity edema. No abdominal pain, vomiting, diarrhea. Denies other recent illnesses, fevers, chills. Has noted some increased urinary frequency. In the ED, patient was found to be in atrial fibrillation with variably uncontrolled rates into the 110s. Initial troponin is negative, EKG does not show any acute ST changes. CT head was obtained that questioned a tiny hyperdense focus within the left medial temporal region. Brain MRI was then obtained that was negative for acute findings. Other labs are unremarkable. Patient was given IVF, Tylenol, IV metoprolol 2.5 mg. Admission Exam Per Admitting Provider Constitutional: WD/WN, vitals as above Eyes: PERRL, conjunctivae normal, anicteric sclerae ENMT: external ear and nose normal, oropharynx normal Respiratory: normal respiratory effort, lungs clear to auscultation Cardiovascular: + tachycardic and + irregularly irregular Vessels: normal peripheral pulses Extremities: no edema Gastrointestinal: bowel sounds, soft, nontender, no hepatosplenomegaly Musculoskeletal: no cyanosis or clubbing, extremities motor strength 5/5 Skin: no rashes, warm and dry Neurologic: PERRL, EOMI, accommodation nl, no face palsy, no dysarthria Psychiatric: A+Ox3, euthymic affect Principal Diagnosis Atrial fibrillation with RVR Chest pain Hypertension Dyslipidemia Discharge Exam General- No acute distress Head- atraumatic Eyes- PERRL, EOMI, ENT- oropharynx clear Neck- supple, no JVD Lungs- clear to auscultation Heart- regular rhythm; no murmur Abdomen- normal bowel sounds, soft, nontender Extremities- no calf tenderness Neuro- alert, oriented x 3; PERRL, EOMI; no facial palsy; no dysarthria Skin- warm & dry Discharge Data Allergies Allergy/AdvReac Type Severity Reaction Status Date / Time celecoxib Allergy Intermediate HIVES Verified 03/05/19 13:21 lisinopril Allergy Unknown HEADACHE, Verified 03/05/19 13:21 DIZZINESS Sulfa (Sulfonamide Allergy Unknown HIVES Verified 03/05/19 13:21 Antibiotics) Consultations 03/05/19 17:01 ED Decision to Admit Stat 03/06/19 10:05 Consult Cardiology Routine Ordered Studies 03/05/19 12:19 CT head/brain wo con Stat 03/05/19 13:22 MR brain wo con Stat MR brain wo con CLINICAL HISTORY: 69 years-old Male presenting with SWANSON, abnormal head CT. TECHNIQUE: Multisequence, multiplanar MR imaging of the brain was performed without the use of intravenous contrast. IV contrast: None. COMPARISON: Noncontrast CT head from earlier today. FINDINGS: Localizer images: Unremarkable. Bone marrow signal intensity within the calvarium within normal limits. Normal midline sagittal structures. Ventricles and sulci normal in size. No mass effect or midline shift. No restricted diffusion or hemorrhage. Periventricular and subcortical white matter T2/FLAIR hyperintensity, nonspecific but likely indicative of chronic small vessel ischemic change. No extra-axial fluid collection. T2 skull base flow voids preserved. IMPRESSION: 1. Chronic small vessel ischemic change. No acute intracranial abnormality. The finding on CT was apparently artifactual. Electronically signed by: Arthur Aguila M.D. 03/05/2019 3:49 PM Dictated: 03/05/19 1543 Transcribed: 03/05/19 1543 SINGLE VIEW CHEST CLINICAL HISTORY: Generalized weakness. FINDINGS: An AP, portable, upright chest radiograph is compared to study dated 02/01/2018. The heart is mildly enlarged. The pulmonary vasculature is noncongested. There is chronic elevation of the right hemidiaphragm with associated atelectasis. The lungs and pleural spaces are otherwise clear. No pneumothorax is seen. The skeletal structures are osteopenic. The bony thorax is grossly intact. Degenerative change is noted throughout the thoracic spine. IMPRESSION: Mild cardiac enlargement with no active disease in the chest. Electronically signed by: Cristi Messer M.D. 03/05/2019 12:43 PM Dictated: 03/05/19 1243 Transcribed: 03/05/[address] head/brain wo con CLINICAL HISTORY: Severe headache. Atrial fibrillation. COMPARISON STUDY: No previous studies for comparison. TECHNIQUE: Axial CT of the brain is performed from the vertex to the skull base. IV contrast was not administered for this examination. A dose lowering technique was utilized adhering to the principles of ALARA. CT DOSE: 614.27 mGy.cm FINDINGS: No intra or extra-axial mass lesions are visualized. There is no CT evidence of acute cortical infarction. There is no evidence of midline shift. No calvarial fractures are visualized. There is a tiny hyperdense focus within the left medial temporal region. While likely representing calcification, a minimal hemorrhage cannot be excluded. A follow-up CT scan in 6 hours is recommended.. There are minimal white matter hypodensities likely on a small vessel basis. There is no evidence of pathologic ventricular dilatation. There is no evidence of acute sinusitis IMPRESSION: 1. Tiny hyperdense focus within the left medial temporal region. While likely representing calcification, a small hemorrhage cannot be excluded. A 6 hour follow-up CT scan is recommended. Electronically signed by: Michelet Jenkins M.D. 03/05/2019 1:10 PM Dictated: 03/05/19 1304 Transcribed: 03/05/19 1304 Hospital Course (1) Atrial fibrillation with RVR: Present on admission with chest discomfort Had history of paroxysmal afib Converted back to NSR Cardiology on board Tolerated Sotalol, EKG showed QTC stable No arrhythmia on tele monitor Case discussed with cardiology and recommended to continue Sotalol BID Continue Xarelto Follow up with Cardiology in 4 weeks (2) Chest pain: Mostly due to Afib Troponin x3 negative ECHO showed no wall motion abnormality Cardiology will arrange to have outpatient Lexiscan nuclear stress test Resolved (3) Hypertension: BP controlled Continue amlodipine Stable (4) Dyslipidemia: Continue statin (5) DVT prophylaxis: On Xarelto CODE STATUS FULL CODE Disposition Discharge home today Follow up with your primary care provider Dr. Ricks on 03/13 @ 11:05 AM Follow up with cardiology in 4 weeks Total Time Total Time Spent Total Time Spent (In Minutes): 35 minutes Total Time Includes: Examination of the Patient, Discharge Planning, Medication Reconciliation, Communication With Other Providers and Other Discharge Plan Discharge Items Patient Disposition: Home - Self-Care Reason For Visit: CHEST PAIN, AFIB Discharge Diagnosis: Atrial fibrillation with RVR Chest pain Hypertension Dyslipidemia Activity: Resume your previous activity Activity Comment: As tolerated Non-emergency contact: Primary Care Provider and Lead Burner Call non-emergency contact if: you have any medication questions Follow-up/Referrals: Giovani Ricks MD [Primary Care Provider] - Diet: Heart Healthy Addtl Attending Provider Instructions: Follow up with your primary care provider Dr. Ricks on 03/13 @ 11:05 AM Follow up with cardiology in 4 weeks (Office will call you for the appointment) Fall precaution Pending Studies at Discharge: No Stand-Alone Forms: Call Back Authorization, [facility] Medications and DC Order Prescriptions: New sotalol 80 mg Tablet 80 mg PO BID 30 Days Qty: 60 RF: 0 Continued valacyclovir [Valtrex] 1 gram Tablet 1,000 mg PO BID PRN (Reason: Cold Sores) RF: 0 amlodipine 5 mg Tablet 5 mg PO QAM RF: 0 allopurinol 100 mg Tablet 100 mg PO BID RF: 0 pantoprazole 40 mg Tablet,Delayed Release (Dr/Ec) 40 mg PO QAM RF: 0 simvastatin 20 mg Tablet 20 mg PO PM RF: 0 fluticasone propionate [Flonase Allergy Relief] 50 mcg/actuation [place],Suspension 2 spray INTRANASAL DAILY RF: 0 acyclovir [Zovirax] 5 % Cream 1 applic TOPICAL Q2H PRN (Reason: Cold Sores) RF: 0 Centrum Silver 400-250 mcg Tablet,Chewable 1 tab PO DAILY RF: 0 Xarelto 20 mg Tablet 20 mg PO PM RF: 0 Discontinued atenolol 50 mg Tablet 50 mg PO HS RF: 0 Discharge Orders: Discharge Order (Routine); Ordered 03/08/19 Ordered By: Rishabh Cordova Admission Data Admit Date/Time: 03/07/19 19:29 Attending Provider: Rishabh Cordova Admit Provider: Stacia Duran Primary Care Provider: Giovani Ricks Other Providers: Stacia Duran ; Flo Lewis Other Interventions: Discharge Summary Assessment (RN) Last Done: 03/08/19 17:12 DC Date/Time DO NOT enter until pt leaves facility: 03/08/19 18:24
== END 2019-03-08 18:24 | disposition home or self-care (01) | DRG 310 ==
LOC: ED 12:07 → 2S 12:07 → SUATTDRO 17:31 → 2S 18:22